=== PATIENT | male | born 1950 | race Caucasian/White ===

== ENCOUNTER 2016-11-10 18:23 | Emergency (ER) | payer OTHER, MEDICARE ==
[~2016-11-10] VITALS: Ht 175.3 cm; Wt 91.6 kg
[2016-11-10] MEDS ORDERED: INSULANT SC (18:42)
[2016-11-10] MEDS ORDERED: INSUH10VL SC (18:42)
[2016-11-10] MEDS ORDERED: albuterol inhaler (18:42)
[2016-11-10] MEDS ORDERED: LEVO100T5 PO (18:42)
[2016-11-10] MEDS ORDERED: ASPI32ECTA PO (18:42)
[2016-11-10] MEDS ORDERED: ATOR1TAB18 PO (18:42)
[2016-11-10] MEDS ORDERED: VALS1TAB46 PO (18:42)
[2016-11-10] MEDS ORDERED: BENA25CA4 PO (18:42)
[2016-11-10] MEDS ORDERED: SYMB16INH INH (18:42)
[2016-11-10] MEDS ORDERED: HYDR25TAB PO (18:42)
[2016-11-10] MEDS ORDERED: BICA50TA2 PO (18:42)
[2016-11-10] MEDS ORDERED: CODEINE (18:42)
[2016-11-10] MEDS ORDERED: TYLENOL (18:42)
[2016-11-10] MEDS ORDERED: IPRATROPIUM 0.5MG/ALBUTEROL 2.5MG INH SOL UD 3ML (DUONEB)(J7620) NEB ONE (19:00)
[2016-11-10] MEDS ORDERED: methylPREDNISolone INJ 125 MG/2 ML VIAL (J2930) IV ONE (19:00)
[2016-11-10] MEDS ORDERED: NS 1,000 ML IV ONE (19:00)
[2016-11-10] MEDS ORDERED: ALBUTEROL SULFATE 2.5 MG/0.5 ML INH NEB SOLN INH ONE (19:00)
[2016-11-10] MEDS ORDERED: ACETAMINOPHEN 325 MG TAB PO ONE (19:00)
[2016-11-10 19:40] LABS: ABG BASE EXCESS 1.5 (-2.0-2.0); ABG HCO3 25.3 MEQ/L (22.0-26.0); ABG PARTIAL PRESSURE CO2 37.4 mmHg (35.0-45.0); ABG PARTIAL PRESSURE O2 72.4 mmHg (75.0-100.0); ABG STANDARD HCO3 25.7 MEQ/L (22.0-26.0); ABG TOTAL CO2 26.4 MEQ/L (23.0-31.0); ABG pH (ARTERIAL) 7.448 UNITS (7.350-7.450)
[2016-11-10 19:44] LABS: BASO # 0.1 K/mm3 (0.0-0.2); BASO % 0.5 % (0.0-1.0); EOS # 0.2 K/mm3 (0.0-0.50); EOS % 0.9 % (0.0-3.0); LARGE UNSTAINED CELL # 0.3 K/mm3 (0.0-0.4); LARGE UNSTAINED CELL % 1.6 % (0.0-4.0); LYMPH # 1.2 K/mm3 (1.5-4.5); LYMPH % 6.7 % (24.0-44.0); MEAN CORPUSCULAR HEMOGLOBIN 31.8 pg (27.0-33.0); MEAN CORPUSCULAR HGB CONC 34.3 g/dl (32.0-36.5); MEAN CORPUSCULAR VOLUME 92.8 fl (80.0-96.0); MONO # 0.9 K/mm3 (0.0-0.8); MONO % 5.3 % (0.0-5.0); NEUTROPHILS # 14.7 K/mm3 (1.8-7.7); PLATELET COUNT, AUTOMATED 203 k/mm3 (150-450); RED CELL DISTRIBUTION WIDTH 12.6 % (11.5-14.5); WHITE BLOOD COUNT 17.2 K/mm3 (4.0-10.0)
[2016-11-10 20:07] LABS: ANION GAP 8 MEQ/L (8-16); BLOOD UREA NITROGEN 17 MG/DL (7-18); CARBON DIOXIDE LEVEL 27 MEQ/L (21-32); CHLORIDE LEVEL 102 MEQ/L (98-107); CREATININE FOR GFR 1.02 MG/DL (0.70-1.30); GLOMERULAR FILTRATION RATE > 60.0 (>49); GLUCOSE, FASTING 123 MG/DL (80-110); SODIUM LEVEL 137 MEQ/L (136-145)
[2016-11-10 20:12] LABS: ALBUMIN 3.7 GM/DL (3.2-5.2); ALBUMIN/GLOBULIN RATIO 1.19 (1.00-1.93); BILIRUBIN,DIRECT 0.2 MG/DL (0.0-0.2); BILIRUBIN,TOTAL 0.7 MG/DL (0.2-1.0); THYROXINE (T4) 9.4 UG/DL (4.5-12.0); TOTAL PROTEIN 6.8 GM/DL (6.4-8.2)
[2016-11-10] MEDS ORDERED: LevoFLOXacin IV 750 MG in APPROPRIATE DILUENT 1 EA IV ONE (20:15)
[2016-11-10] MEDS ORDERED: ISOVUE-370 76% 100ML VIAL (Q9967) As Ordered ONE (21:38)
--- NOTE | 2016-11-10 23:00 | REPUSA ---
CLINICAL HISTORY: Dyspnea, exclude PE. TECHNIQUE: Multiple incremental axial, coronal and oblique images are obtained from the thoracic inle t to the upper abdomen. Intravenous contrast material was administered as per pulmonary embolism prot ocol. COMMENTS: There is excellent opacification of pulmonary arterial system without evidence for pulmonary embolism . Aorta is of normal caliber without evidence for dissection or aneurysm. 4 x 6 cm emphysematous bulla is present in the medial aspect of right lower lobe. Left lower lobe co nfluent opacity is seen compatible with pneumonia. Right middle lobe scarring is seen There is no evidence of pleural or parenchymal mass. There are no pleural effusions. There is no evid ence of hilar or mediastinal lymphadenopathy. The heart and great vessels are within normal limits. Images of the upper abdomen demonstrate no evidence of adrenal mass. The bony structures are free of lytic or blastic lesions. Multilevel degenerative changes are seen in volving the visualized thoracolumbar spine. Scattered calcifications are seen involving the aorta and major branches compatible with atherosclero sis. IMPRESSION: No evidence for pulmonary embolism. 4 x 6 cm emphysematous bulla is present in the medial aspect of right lower lobe. Left lower lobe confluent opacity is seen compatible with pneumonia. Thank you for your kind referral of this patient.
[2016-11-10] MEDS ORDERED: LEVA750T PO (23:27)
[2016-11-10] MEDS ORDERED: PRED50TA PO (23:27)
[2016-11-11 00:05] VITALS: BP 154/71
--- NOTE | 2016-11-11 08:54 | REP ---
REASON: Cough and dyspnea. COMPARISON: 11/08/2015 FINDINGS: The technique utilized in obtaining the radiograph has magnified the cardiac silhouette and accentuated the interstitial markings. The superior mediastinal structures are midline. The cardiac silhouette is unremarkable in size, shape, and position. The diaphragmatic surfaces of the lungs are regular, and the costophrenic angles are clear. The pulmonary castillo are clear. The imaged osseous structures are intact. IMPRESSION: There is no acute cardiopulmonary disease. Signed by Brendon Croft DO 11/11/2016 09:26 A
--- NOTE | 2016-11-11 09:23 | ECGEPIP ---
Stationary ECG Study [facility] - ED Test Date: 2016-11-10 Pat Name: GELACIO WANG Department: Room: - Gender: M Patient Care Representative: SalinasB: 1950 Requested By: Mayur Simpson Order Number: [id number] Reading MD: Mayur Simpson Measurements Intervals [place] Rate: 78 P: 62 NV: 132 QRS: 44 QRSD: 114 T: 58 QT: 375 QTc: 428 Interpretive Statements SINUS RHYTHM RIGHT BUNDLE BRANCH BLOCK LOW QRS VOLTAGE LIMB LEADS ST T WAVE CHANGES ANTEROSEPTAL LEADS - NONSPECIFIC VS ISCHEMIA CW 11/08/15 - RATE INCREASED NEW ANTEROSEPTAL ST T WAVE CHANGES Electronically Signed On 11-11-2016 9:23:30 EDT by Mayur Simpson
--- NOTE | 2016-11-11 09:23 | ECGEPIP ---
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
== END 2016-11-11 00:10 | disposition home or self-care (01) ==
LOC: M ED 19:11
DX: J44.1 Chronic obstructive pulmonary disease with (acute) exacerbation (principal); J18.9 Pneumonia, unspecified organism; I45.10 Unspecified right bundle-branch block; R94.31 Abnormal electrocardiogram [ECG] [EKG]; E10.9 Type 1 diabetes mellitus without complications; I10 Essential (primary) hypertension; E78.9 Disorder of lipoprotein metabolism, unspecified; E07.9 Disorder of thyroid, unspecified; C61 Malignant neoplasm of prostate; F17.200 Nicotine dependence, unspecified, uncomplicated; Z79.899 Other long term (current) drug therapy; Z79.82 Long term (current) use of aspirin
CPT/HCPCS: 36600; 71010; 71275; 80048; 80076; 82550; 82553; 82803; 83605; 83880; 84436; 84443; 84484; 85025; 87040; 87070; 87205; 87804; 93005; 93041; 96361; 96365; 96375; 96376; 99285; J1956; J2930; Q9967

== ENCOUNTER → 2017-06-06 | Outpatient (REF) ==
[~2017-06-06] MED LIST: ASPI325T24 PO; ATOR80TA59 PO; BENA25CA4 PO; BICA50TA2 PO; CODEINE; HYDR25TAB PO; INSUH10VL SC; INSULANT SC; LEVA750T7 PO; LEVO100T5 PO; PRED50TA PO; SYMB16INH INH; TYLENOL; VALS1TAB46 PO; albuterol inhaler
[2017-06-07 14:16] LABS: Lyme Disease IgG/IgM Antibodie <0.91 ISR (0.00-0.90); Lyme Disease IgM Ab Quantitati <0.80 index (0.00-0.79)
== END ==
LOC: M LAB 12:51
PROVIDERS: ATTEND Nurse Practitioner Family
DX: G51.0 Bell's palsy (principal)

== ENCOUNTER 2017-10-08 10:48 | Emergency (ER) | payer OTHER, MEDICARE ==
[2017-10-08 11:56] LABS: VENOUS BASE EXCESS 1.4 (-2.0-2.0); VENOUS HCO3 28.6 MEQ/L (23.0-27.0); VENOUS O2 SATURATION 61.6 % (60.0-80.0); VENOUS PARTIAL PRESSURE CO2 54.4 mmHg (38.0-50.0); VENOUS PARTIAL PRESSURE O2 33.4 mmHg (30.0-50.0); VENOUS PH 7.338 UNITS (7.330-7.430); VENOUS STANDARD HCO3 24.6 MEQ/L; VENOUS TOTAL CO2 30.2 MEQ/L (24.0-28.0)
[2017-10-08 12:08] LABS: BASO # 0.1 10^3/uL (0.0-0.2); BASO % 0.8 % (0.0-1.0); EOS # 0.1 10^3/uL (0.0-0.50); EOS % 0.9 % (0.0-3.0); HEMATOCRIT 47.3 % (42.0-52.0); HEMOGLOBIN 15.7 g/dl (14.0-18.0); IMMATURE GRANULOCYTE % 0.5 % (0-3.0); LYMPH # 1.4 10^3/uL (1.5-4.5); LYMPH % 11.6 % (24.0-44.0); MEAN CORPUSCULAR HEMOGLOBIN 31.5 pg (27.0-33.0); MEAN CORPUSCULAR HGB CONC 33.2 g/dl (32.0-36.5); MEAN CORPUSCULAR VOLUME 94.8 fl (80.0-96.0); MONO # 0.7 10^3/uL (0.0-0.8); MONO % 5.8 % (0.0-5.0); NEUTROPHILS # 9.5 10^3/uL (1.8-7.7); NEUTROPHILS % 80.4 % (36.0-66.0); PLATELET COUNT, AUTOMATED 201 10^3/uL (150-450); RED BLOOD COUNT 4.99 10^6/uL (4.30-6.10); RED CELL DISTRIBUTION WIDTH 12.5 % (11.5-14.5); WHITE BLOOD COUNT 11.8 10^3/uL (4.0-10.0)
[2017-10-08 12:16] LABS: INR 0.92; PROTHROMBIN TIME 12.4 SECONDS (12.4-14.5)
[2017-10-08] MEDS: MECLIZINE 25 MG TABLET PO (12:30)
[2017-10-08 12:34] LABS: ANION GAP 8 MEQ/L (8-16); BLOOD UREA NITROGEN 16 MG/DL (7-18); CALCIUM LEVEL 9.7 MG/DL (8.8-10.2); CARBON DIOXIDE LEVEL 29 MEQ/L (21-32); CHLORIDE LEVEL 101 MEQ/L (98-107); CPK CREATINE PHOSPHOKINASE 100 U/L (39-308); CREATININE FOR GFR 0.92 MG/DL (0.70-1.30); FREE T4 0.96 NG/DL (0.76-1.46); GLOMERULAR FILTRATION RATE > 60.0 (>49); GLUCOSE, FASTING 201 MG/DL (70-100); MAGNESIUM LEVEL 2.4 MG/DL (1.8-2.4); SODIUM LEVEL 138 MEQ/L (136-145); TROPONIN I < 0.02 NG/ML (< 0.10)
[2017-10-08 12:40] LABS: CK-MB VALUE MASS 2.9 NG/ML (0.0-3.6)
[2017-10-10 11:57] LABS: BEDSIDE GLUCOSE 201 MG/DL (80-115)
== END 2017-10-08 16:42 | disposition left against medical advice (07) ==
LOC: M ED 10:48
DX: R42 Dizziness and giddiness (principal); I67.82 Cerebral ischemia; Z86.73 Personal history of transient ischemic attack (TIA), and cerebral infarction without residual deficits; I45.10 Unspecified right bundle-branch block; E11.9 Type 2 diabetes mellitus without complications; I10 Essential (primary) hypertension; E78.5 Hyperlipidemia, unspecified; M54.9 Dorsalgia, unspecified; E05.90 Thyrotoxicosis, unspecified without thyrotoxic crisis or storm; Z85.46 Personal history of malignant neoplasm of prostate; F17.200 Nicotine dependence, unspecified, uncomplicated
CPT/HCPCS: 70551

== ENCOUNTER → 2018-02-01 | Outpatient (CLI) | payer OTHER, MEDICARE ==
[2018-02-01 13:03] LABS: ALBUMIN/GLOBULIN RATIO 1.43 (1.00-1.93); ALKALINE PHOSPHATASE 75 U/L (45-117); ALT/SGPT 24 U/L (12-78); AST/SGOT 19 U/L (7-37); BILIRUBIN,DIRECT 0.1 MG/DL (0.0-0.2); BILIRUBIN,TOTAL 0.5 MG/DL (0.2-1.0); TOTAL PROTEIN 6.8 GM/DL (6.4-8.2)
== END ==
LOC: M WUC 10:54
DX: B35.4 Tinea corporis (principal)
CPT/HCPCS: 80076

== ENCOUNTER 2018-06-25 07:32 | Emergency (ER) | payer OTHER, MEDICARE ==
[2018-06-25] MEDS: methylPREDNISolone INJ 125 MG/2 ML VIAL (J2930) IV (08:01)
[2018-06-25] MEDS: ALBUTEROL SULFATE 2.5 MG/0.5 ML INH NEB SOLN NEB ×2 (08:04→08:21)
[2018-06-25 08:28] LABS: BASO # 0.1 10^3/uL (0.0-0.2); BASO % 0.5 % (0.0-1.0); EOS # 0.2 10^3/uL (0.0-0.50); EOS % 0.9 % (0.0-3.0); HEMATOCRIT 40.5 % (42.0-52.0); HEMOGLOBIN 13.7 g/dl (13.5-17.5); IMMATURE GRANULOCYTE % 0.8 % (0-3.0); LYMPH # 1.4 10^3/uL (1.5-4.5); LYMPH % 8.4 % (24.0-44.0); MEAN CORPUSCULAR HEMOGLOBIN 32.7 pg (27.0-33.0); MEAN CORPUSCULAR HGB CONC 33.8 g/dl (32.0-36.5); MEAN CORPUSCULAR VOLUME 96.7 fl (80.0-96.0); MONO # 1.5 10^3/uL (0.0-0.8); MONO % 8.7 % (0.0-5.0); NEUTROPHILS # 13.4 10^3/uL (1.8-7.7); NEUTROPHILS % 80.7 % (36.0-66.0); PLATELET COUNT, AUTOMATED 174 10^3/uL (150-450); RED BLOOD COUNT 4.19 10^6/uL (4.30-6.10); RED CELL DISTRIBUTION WIDTH 13.2 % (11.5-14.5); WHITE BLOOD COUNT 16.6 10^3/uL (4.0-10.0)
[2018-06-25 08:45] LABS: LACTIC ACID SEPSIS PROTOCOL 1.7 MMOL/L (0.4-2.0)
[2018-06-25 08:45] LABS: ANION GAP 9 MEQ/L (8-16); BLOOD UREA NITROGEN 12 MG/DL (7-18); CARBON DIOXIDE LEVEL 28 MEQ/L (21-32); CHLORIDE LEVEL 100 MEQ/L (98-107); CPK CREATINE PHOSPHOKINASE 122 U/L (39-308); CREATININE FOR GFR 0.96 MG/DL (0.70-1.30); GLOMERULAR FILTRATION RATE > 60.0 (>42); GLUCOSE, FASTING 183 MG/DL (70-100); MB/CK RELATIVE INDEX 3.44 (< OR =4); NT-PRO BNP 122 PG/ML (<125); POTASSIUM SERUM 3.7 MEQ/L (3.5-5.1); SODIUM LEVEL 137 MEQ/L (136-145); TROPONIN I < 0.02 NG/ML (< 0.10)
[2018-06-25 08:51] LABS: ABG HCO3 27.1 MEQ/L (22.0-26.0); ABG O2 SATURATION 96.2 % (95.0-99.0); ABG PARTIAL PRESSURE O2 81.1 mmHg (75.0-100.0); ABG STANDARD HCO3 26.2 MEQ/L (22.0-26.0); ABG TOTAL CO2 28.5 MEQ/L (23.0-31.0); ABG pH (ARTERIAL) 7.408 UNITS (7.350-7.450)
[2018-06-25 09:13] LABS: INFLUENZA A AMPLIFICATION NEGATIVE (NEGATIVE); INFLUENZA B AMPLIFICATION NEGATIVE (NEGATIVE)
[2018-06-25] MEDS: LevoFLOXacin IV 500 MG in APPROPRIATE DILUENT 1 EA IV (11:50)
== END 2018-06-25 13:03 | disposition home or self-care (01) ==
LOC: M ED 07:32
DX: J18.9 Pneumonia, unspecified organism (principal); J44.9 Chronic obstructive pulmonary disease, unspecified; R06.03 Acute respiratory distress; R00.0 Tachycardia, unspecified; E11.9 Type 2 diabetes mellitus without complications; I10 Essential (primary) hypertension; Z87.891 Personal history of nicotine dependence; Z79.899 Other long term (current) drug therapy; Z79.51 Long term (current) use of inhaled steroids; Z79.4 Long term (current) use of insulin; Z79.82 Long term (current) use of aspirin
CPT/HCPCS: J2930

== ENCOUNTER → 2018-08-06 | Outpatient (REF) | payer OTHER, MEDICARE ==
[~2018-08-06] MED LIST changes: +ALBU17IN2 INH; -ASPI325T24 PO; +ASPI325T25 PO; -BICA50TA2 PO; +BICA50TA9 PO; +HYDR-3713 PO; +HYDR12.55 PO; +LEVA1TAB2 PO; +MECL-68 PO; +PRED10TA2 PO; +VALS1TAB49 PO; +VITA200038 PO; +[UNRECOGNIZED DRUG - OTHER]
--- NOTE | 2018-08-07 01:52 | REP ---
Clinical: Nonhealing wound. Technique: AP, lateral, bilateral oblique views of the left elbow. Comparison: None. Findings: Mild age-related arthritic changes are appreciated along with peripheral vascular disease. No obvious acute fracture or dislocation. No obvious healing osseous injury, subcutaneous emphysema or radiodense foreign body. Anterior and posterior fat pads are grossly within normal limits. Impression: Age-related arthritic changes and evidence for peripheral vascular disease. No obvious acute process appreciated. Electronically Signed by Vern Huff MD 08/07/2018 01:43 A
--- NOTE | 2018-08-07 02:14 | REP ---
Clinical: Nonhealing wound. Technique: AP, lateral, bilateral oblique views of the right foot. Findings: Advanced arthritic changes at the first metatarsophalangeal joint including joint space obliteration, marginal spurring/heterotopic ossification and subchondral heterogeneity with subtle cystic changes. Mild chronic hallux valgus deformity is also noted. Remainder examination demonstrates mild arthritic changes. No significant swelling or subcutaneous emphysema. No obvious acute fracture or dislocation. Impression: Degenerative changes primarily involving the first MTP joint. Electronically Signed by Vern Huff MD 08/07/2018 02:06 A
--- NOTE | 2018-08-07 02:40 | REP ---
Clinical: Nonhealing wound. Technique: AP, lateral, bilateral oblique views of the right ankle. Findings: Swelling and small ulceration overlies the lateral malleolus. The osseous structures appear intact and normal. No periosteal reaction or erosive changes are appreciated to suggest osteomyelitis. Ankle mortise intact. Impression: Swelling and small ulcer along the lateral ankle. Osseous structures and joint spaces appeared normal. Electronically Signed by Vern Huff MD 08/07/2018 02:31 A
== END ==
LOC: M RAD 13:37
PROVIDERS: ATTEND Family Medicine
DX: S91.301A Unspecified open wound, right foot, initial encounter (principal); X58.XXXA Exposure to other specified factors, initial encounter; Y92.89 Other specified places as the place of occurrence of the external cause; M19.071 Primary osteoarthritis, right ankle and foot

== ENCOUNTER 2018-08-27 12:26 | Emergency (ER) | payer OTHER, MEDICARE ==
[~2018-08-27] VITALS: Ht 175.3 cm; Wt 85.0 kg
[2018-08-27] MEDS ORDERED: TIOT18INH INH (12:37)
[2018-08-27] MEDS ORDERED: methylPREDNISolone INJ 125 MG/2 ML VIAL (J2930) IV ONE (13:15)
[2018-08-27] MEDS ORDERED: NS 1,000 ML IV ONE (13:15)
[2018-08-27 13:20] LABS: HEMATOCRIT 40.5 % (42.0-52.0); MEAN CORPUSCULAR HEMOGLOBIN 31.2 pg (27.0-33.0); MEAN CORPUSCULAR HGB CONC 34.6 g/dl (32.0-36.5); MEAN CORPUSCULAR VOLUME 90.2 fl (80.0-96.0); PLATELET COUNT, AUTOMATED 154 10^3/uL (150-450); RED BLOOD COUNT 4.49 10^6/uL (4.30-6.10); WHITE BLOOD COUNT 5.9 10^3/uL (4.0-10.0)
[2018-08-27] MEDS: IPRATROPIUM 0.5MG/ALBUTEROL 2.5MG INH SOL UD 3ML (DUONEB)(J7620) NEB PRN ×3 (13:21→14:02)
[2018-08-27 13:41] LABS: ALBUMIN 3.5 GM/DL (3.2-5.2); ALT/SGPT 22 U/L (12-78); BILIRUBIN,DIRECT 0.3 MG/DL (0.0-0.2); BILIRUBIN,TOTAL 0.9 MG/DL (0.2-1.0); BLOOD UREA NITROGEN 8 MG/DL (7-18); CALCIUM LEVEL 8.7 MG/DL (8.8-10.2); CARBON DIOXIDE LEVEL 32 MEQ/L (21-32); CHLORIDE LEVEL 95 MEQ/L (98-107); CPK CREATINE PHOSPHOKINASE 120 U/L (39-308); CREATININE FOR GFR 0.93 MG/DL (0.70-1.30); GLOMERULAR FILTRATION RATE > 60.0 (>42); GLUCOSE, FASTING 199 MG/DL (70-100); LIPASE 89 U/L (73-393); MB/CK RELATIVE INDEX 2.75 (< OR =4); NT-PRO BNP 147 PG/ML (<125); POTASSIUM SERUM 3.4 MEQ/L (3.5-5.1); SODIUM LEVEL 136 MEQ/L (136-145); THYROID STIMULATING HORMONE 0.916 uIU/ML (0.358-3.740); TOTAL PROTEIN 6.6 GM/DL (6.4-8.2); TROPONIN I < 0.02 NG/ML (< 0.10)
--- NOTE | 2018-08-27 14:10 | REP ---
Clinical: Cough and dyspnea . Comparison: 10/08/2017 . Technique: PA and lateral. Findings: The mediastinum and cardiac silhouette are normal. The lung castillo are clear and without acute consolidation, effusion, or pneumothorax. The skeletal structures are intact and normal. Impression: 1. No acute cardiopulmonary process. Electronically Signed by Vern Huff MD 08/27/2018 02:01 P
[2018-08-27 14:17] LABS: ATYPICAL LYMPH 3 % (0-5); BASOPHILS 1 % (0-4); EOSINOPHILS 1 % (0-5); LYMPHOCYTES 32 % (16-52); MONOCYTES 9 % (0-8); NEUTROPHILS 53 % (35-75)
[2018-08-27 14:18] LABS: PLATELET ESTIMATE NORMAL (NORMAL)
[2018-08-27] MEDS ORDERED: PRED10TA2 PO (15:34)
[2018-08-27 15:53] VITALS: BP 146/56
--- NOTE | 2018-08-28 10:16 | ECGEPIP ---
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
== END 2018-08-27 15:58 | disposition home or self-care (01) ==
LOC: M ED 12:26
DX: J44.1 Chronic obstructive pulmonary disease with (acute) exacerbation (principal); E11.9 Type 2 diabetes mellitus without complications; I10 Essential (primary) hypertension; E78.5 Hyperlipidemia, unspecified; M54.9 Dorsalgia, unspecified; F17.210 Nicotine dependence, cigarettes, uncomplicated; Z79.899 Other long term (current) drug therapy; Z79.51 Long term (current) use of inhaled steroids; Z79.4 Long term (current) use of insulin; Z79.82 Long term (current) use of aspirin
CPT/HCPCS: 71046; 80048; 80076; 82550; 82553; 83605; 83690; 83880; 84443; 84484; 85025; 87040; 87486; 87581; 87633; 87798; 93005; 93041; 94640; 94760; 96374; 99285; J2930

== ENCOUNTER 2018-11-05 23:22 | Emergency (ER) | payer MEDICARE, OTHER ==
[~2018-11-05] VITALS: Ht 175.3 cm; Wt 88.6 kg
[~2018-11-05 23:22] MED LIST changes: +ASPI-255 PO; -ASPI325T25 PO; +TIOT18INH INH; -VALS1TAB46 PO; +VALS1TAB66 PO
--- NOTE | 2018-11-06 01:19 | REPVR ---
EXAM: CT Head Without Contrast EXAM DATE/TIME: 11/06/2018 12:21 AM CLINICAL HISTORY: 68 years old, male; Injury or trauma; Fall; Additional info: Tr TECHNIQUE: Imaging protocol: Axial computed tomography images of the head/brain without contrast. Radiation optimization: All CT scans at this facility use at least one of these dose optimization techniques: automated exposure control; mA and/or kV adjustment per patient size (includes targeted exams where dose is matched to clinical indication); or iterative reconstruction. COMPARISON: CT Head without contrast 10/08/2017 11:27 AM FINDINGS: Brain: Normal. No hemorrhage. No significant white matter disease. No edema. Ventricles: Normal. No ventriculomegaly. Bones/joints: Unremarkable. No acute fracture. Sinuses: Visualized sinuses are unremarkable. No acute sinusitis. Mastoid air cells: Visualized mastoid air cells are unremarkable. No mastoid effusion. Soft tissues: Unremarkable. IMPRESSION: No acute intracranial abnormality. Electronically signed by: Elle Mueller On 11/06/2018 01:19:37 AM
[2018-11-06 01:50] VITALS: BP 131/68
--- NOTE | 2018-11-06 15:35 | ECGEPIP ---
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
== END 2018-11-06 02:04 | disposition home or self-care (01) ==
LOC: EDBD 23:22 → M ED 23:22
DX: S00.83XA Contusion of other part of head, initial encounter (principal); W18.39XA Other fall on same level, initial encounter; Y92.018 Other place in single-family (private) house as the place of occurrence of the external cause; E11.9 Type 2 diabetes mellitus without complications; I10 Essential (primary) hypertension; J44.9 Chronic obstructive pulmonary disease, unspecified; Z79.899 Other long term (current) drug therapy; Z79.82 Long term (current) use of aspirin; Z79.4 Long term (current) use of insulin

== ENCOUNTER 2019-12-14 10:49 | Inpatient (IN) | payer OTHER, MEDICARE ==
[~2019-12-14] VITALS: Ht 175.3 cm; Wt 70.2 kg
[2019-12-14] MEDS: NICOTINE 14 MG/24 HR TRANSDERMAL TD SCH ×2 (09:00→18:02)
[~2019-12-14 10:49] MED LIST changes: -ALBU17IN2 INH; -MECL-68 PO; +MECL1TAB31 PO; +PROV108A INH; -VALS1TAB49 PO; +VALS40TA9 PO
[2019-12-14] MEDS ORDERED: GABA-845 PO (11:15)
[2019-12-14] MEDS: IPRATROPIUM 0.5MG/ALBUTEROL 2.5MG INH SOL UD 3ML (DUONEB)(J7620) NEB SCH ×4 (11:49→20:00)
[2019-12-14 11:58] LABS: BASO # 0.2 10^3/uL (0.0-0.2); BASO % 1.3 % (0.0-1.0); EOS # 0.4 10^3/uL (0.0-0.5); HEMATOCRIT 34.8 % (42.0-52.0); HEMOGLOBIN 10.5 g/dl (13.5-17.5); LYMPH # 1.2 10^3/uL (1.5-5.0); LYMPH % 9.6 % (24.0-44.0); MEAN CORPUSCULAR HGB CONC 30.2 g/dl (32.0-36.5); MEAN CORPUSCULAR VOLUME 96.1 fl (80.0-96.0); NEUTROPHILS # 9.3 10^3/uL (1.5-8.5); NEUTROPHILS % 77.7 % (36.0-66.0); PLATELET COUNT, AUTOMATED 303 10^3/uL (150-450); RED BLOOD COUNT 3.62 10^6/uL (4.30-6.10); WHITE BLOOD COUNT 11.9 10^3/uL (4.0-10.0)
[2019-12-14] MEDS ORDERED: [UNRECOGNIZED DRUG - CODE] IV (12:13)
[2019-12-14 12:15] LABS: ERYTHROCYTE SEDIMENTATION RATE 65 mm/hr (0-20)
[2019-12-14 12:31] LABS: BLOOD UREA NITROGEN 18 MG/DL (7-18); CALCIUM LEVEL 9.1 MG/DL (8.8-10.2); CARBON DIOXIDE LEVEL 28 MEQ/L (21-32); CHLORIDE LEVEL 101 MEQ/L (98-107); CREATININE FOR GFR 0.74 MG/DL (0.70-1.30); GLOMERULAR FILTRATION RATE > 60.0 (>42); GLUCOSE, FASTING 218 MG/DL (70-100); POTASSIUM SERUM 4.3 MEQ/L (3.5-5.1); SODIUM LEVEL 137 MEQ/L (136-145)
[2019-12-14 12:53] LABS: CK-MB VALUE MASS 3.6 NG/ML (<3.6); CPK CREATINE PHOSPHOKINASE 60 U/L (39-308); NT-PRO BNP 14472 PG/ML (<125); TROPONIN I 0.14 NG/ML (< 0.10)
[2019-12-14] MEDS ORDERED: FUROSEMIDE 40MG/4ML VIAL (J1940) IV ONE (13:30)
--- NOTE | 2019-12-14 14:40 | REP ---
REASON: Dyspnea. COMPARISON: Multiple, the latest a frontal view obtained as part of an abdominal series, 08/05/2019. The technique utilized in obtaining the radiograph has magnified the cardiac silhouette and accentuated the interstitial markings. Since the last examination, a PICC line catheter has been placed, the tip of which is in the superior vena cava. The interstitial markings are diffusely increased and accentuated by technique. There is evidence of Fiorella B lines. There is evidence of pulmonary vascular redistribution, remembering this is a portable exam. The heart is borderline but accentuated by technique. The pleural angles are sharp. There are no patchy opacities. The imaged osseous structures are stable and intact. IMPRESSION: 1. There is evidence of interstitial edema, as described above. 2. PICC line catheter, as described above. 3. Exam limitations and technical parameters, as described above. Electronically Signed by Brendon Croft DO 12/14/2019 03:51 P
[2019-12-14 15:02] LABS: CK-MB VALUE MASS 3.2 NG/ML (<3.6); MB/CK RELATIVE INDEX 4.85 (< OR =4); TROPONIN I 0.21 NG/ML (< 0.10)
[2019-12-14] MEDS ORDERED: GABA-843 PO (15:17)
[2019-12-14] MEDS ORDERED: FLUO5OI TOP (15:17)
[2019-12-14] MEDS ORDERED: BACL10TA2 PO (15:17)
[2019-12-14] MEDS ORDERED: NAPR220C14 PO ×2 (15:17)
[2019-12-14] MEDS ORDERED: SPIR1CAP INH (15:17)
[2019-12-14] MEDS ORDERED: VENTAER INH (15:17)
[2019-12-14] MEDS ORDERED: ATOR80TA59 PO (15:17)
[2019-12-14] MEDS ORDERED: AMIT10TA PO (15:17)
[2019-12-14] MEDS ORDERED: KETO2CR TOP (15:17)
[2019-12-14] MEDS ORDERED: ALBU83IN INH (15:17)
[2019-12-14] MEDS ORDERED: FLUO1CRE4 TOP (15:17)
[2019-12-14] MEDS ORDERED: AMLO10TA5 PO (15:17)
[2019-12-14] MEDS ORDERED: VALS1TAB67 PO (15:17)
[2019-12-14] MEDS ORDERED: ATEN50TA2 PO (15:17)
[2019-12-14] MEDS ORDERED: MAALOX 30 ML SUSP *UDC PO PRN (15:45)
[2019-12-14] MEDS ORDERED: ACETAMINOPHEN TAB 650MG DOSE (2X325MG) PO PRN (15:45)
[2019-12-14] MEDS ORDERED: MOM 30ML SUSPENSION UDC PO PRN (15:45)
[2019-12-14] MEDS ORDERED: FUROSEMIDE 40MG/4ML VIAL (J1940) IV SCH (15:45)
[2019-12-14] MEDS ORDERED: ALBUTEROL SULFATE 2.5 MG/0.5 ML INH NEB SOLN NEB PRN (15:45)
[2019-12-14] MEDS ORDERED: DEXTROSE 50% 50 ML SYRINGE IV PRN (16:00)
[2019-12-14] MEDS ORDERED: BACLOFEN 10 MG TAB PO PRN (16:00)
[2019-12-14] MEDS ORDERED: NORCO, ANEXSIA 5/325MG TABLET (HYDROcodone/ACETAMINOPHEN) PO PRN ×2 (16:00→18:30)
[2019-12-14] MEDS ORDERED: GLUCAGON INJ 1MG VIAL SC PRN (16:00)
[2019-12-14] MEDS ORDERED: FLUOCINONIDE 0.05% OINT 15 GM TOP PRN (16:00)
[2019-12-14] MEDS ORDERED: KETOCONAZOLE 2% CREAM TOP PRN (16:00)
[2019-12-14] MEDS ORDERED: GLUCOSE 4GM CHEW TABLET PO PRN (16:00)
[2019-12-14] MEDS: GABAPENTIN 300 MG CAP PO SCH ×2 (16:30→20:22)
--- NOTE | 2019-12-14 16:31 | HPEPDOC ---
General Date of Admission December 14, 2019 at 15:44 Date of Service: December 14, 2019 Chief Complaint The patient is a 69-year-old male admitted with a reason for visit of CHF. Source: Patient Exam Limitations: No limitations Timing/Duration: Other Severity: Moderate (5 days) Associated Symptoms: Shortness of breath, Other (, orthopnea) History of Present Illness This is a 69 years old white male with past medical history of hypertension, diabetes mellitus, COPD, active smoker, cervical spondylitis, L3-L4 discitis on IV antibiotics, was recently discharged from [facility] in [place] for discitis and had a PICC line placed in and is receiving oxacillin IV. Patient does not remember the dosage but he gets through home care services. According to patient, he developed increasing shortness of breath since last Saturday, which is progressively getting worse, more pronounced on lying down, no cough, no phlegm, no chest pain. Patient is being admitted with exacerbation of COPD and possibly acute systolic CHF. Home Medications Scheduled Amitriptyline HCl (Amitriptyline HCl) 10 Mg Tablet, 10 MG PO QHS, (Reported) NEW RX FROM LAST ADMISSION FROM [place] - PATIENT DID NOT START Amlodipine Besylate (Amlodipine Besylate) 10 Mg Tablet, 5 MG PO DAILY, (Reported) NEW RX FROM LAST ADMISSION AT [place] - PATIENT DID NOT START Aspirin (Aspirin EC) 325 Mg Tabec, 325 MG PO QPM, (Reported) Atenolol (Atenolol) 50 Mg Tablet, 50 MG PO DAILY, (Reported) NEW RX FROM LAST ADMISSION AT [place] - PATIENT HAS NOT STARTED Atorvastatin Calcium (Atorvastatin Calcium) 80 Mg Tablet, 40 MG PO DAILY, (Reported) Budesonide/Formoterol (Symbicort 160-4.5 Mcg Inhaler) 60 Puff/Inhaler Aers, 2 PUFF INH BID, (Reported) Gabapentin (Gabapentin) 300 Mg Capsule, 300 MG PO TID, (Reported) Insulin Human Lispro (Novolog) 100 U/Ml Inj, 1 DOSE SC ACHS, (Reported) PER SLIDING SCALE Naproxen Sodium (Aleve) 220 Mg Capsule, 440 MG PO QAM, (Reported) Naproxen Sodium (Aleve) 220 Mg Capsule, 220 MG PO QHS, (Reported) Oxacillin in Dextrose(Iso-Osm) (Oxacillin 1 gm/ 50 ml Inj) 1 Gm/50 Ml Froz.piggy, 12 GM IV ASDIRECTED, (Reported) IN D5W - ADMINISTER AT 12.5ML/HOUR Tiotropium [place] (Spiriva) 18 Mcg Cap.w.dev, 18 MCG INH DAILY, (Reported) TAKES AROUND 1500 Valsartan (Valsartan) 160 Mg Tablet, 160 MG PO DAILY, (Reported) Scheduled PRN Albuterol Sulf (Albuterol Sulfate) 2.5 Mg/3 Ml Vial.neb, 2.5 MG INH QID PRN for SHORTNESS OF BREATH, (Reported) Albuterol Sulfate (Ventolin Hfa) 18 Gm Hfa.aer.ad, 2 PUFFS INH QID PRN for SHORTNESS OF BREATH, (Reported) Baclofen (Baclofen) 10 Mg Tablet, 10 MG PO TID PRN for SPASMS, (Reported) Fluocinonide (Fluocinonide) 0.1% 120GM Cream..g., 1 DOSE TOP BID PRN for RASH/ITCHING, (Reported) APPLY TO HOTSPOTS Fluocinonide (Fluocinonide) 0.05% 15GM Oint...g., 1 DOSE TOP BID PRN for RASH/ITCHING, (Reported) Hydrocodone/Acetaminophen (Hydrocodone-Acetamin 5-325 mg) 1 Tab Tab, 1 TAB PO QID PRN for PAIN, (Reported) Ketoconazole (Ketoconazole) 15 Gm Cream..g., 1 DOSE TOP DAILY PRN for FUNGAL INFECTION, (Reported) APPLY TO BOTTOM OF FEET AND ELBOWS Allergies Coded Allergies: No Known Allergies (Verified , 01/16/05) Past Medical History Medical History Hypertension, diabetes mellitus, cervical spondylitis, L3-L4 discitis COPD, history of active smoking, history of noncompliance in the past Surgical History History of orthopedic surgeries on his neck, back, elbows, arms, and rest. Also right leg vascular surgery with a stent placement Family History Family history reviewed. Father had a history of CVA Social History * Smoker: current smoker Alcohol: Denies Drugs: denies A-FIB/CHADSVASC A-FIB History Current/History of A-Fib/PAF?: No Review of Systems Constitutional: Denies: Chills, Fever, Malaise, Night Sweats, Weakness, Fatigue, Weight Loss, Lethargy, Other Eyes: Denies: Pain, Vision change, Conjunctivae inflammation, Eyelid inflammation, Redness, Other ENT: Denies: Head Aches, Ear Pain, Dysphagia Skin: Denies: Rash, Lesions, Jaundice, Bruising, Itching, Dry, Breakdown, Nail Changes, Other Pulmonary: Reports: Dyspnea Cardiovascular: Reports: Orthopnea Gastrointestinal: Denies: Nausea, Vomiting, Abdominal Pain, Diarrhea, Constipation, Melena, Hematochezia, Other Symptoms Genitourinary: Denies: Dysuria, Frequency, Incontinence, Hematuria, Retention, Other Symptoms Hematologic: Denies: Bruising, Bleeding Excessively, Petecchia, Purpura, Enlarged Lymph Nodes, Other Hematologic Endocrine: Denies: Polydipsia, Polyphagia, Polyuria, Heat Intolerance, Cold Intolerance, Other Endocrine Sx Musculoskeletal: Denies: Neck Pain, Back Pain, Shoulder Pain, Arm Pain, Hand Pain, Leg Pain, Foot Pain, Joint Pain, Muscle Pain, Spasms, Other Symptoms Neurological: Denies: Weakness, Numbness, Incoordination, Change in speech, Confusion, Seizures, Other Symptoms Psych: Denies: Mood Normal, Anxiety, Depression, Memory Issues, Thoughts of Self Harm, Anger, Thoughts of Harming Other, Other Psych Physical Examination General Exam: Positive: Alert, Cooperative Eye Exam: Positive: PERRLA, Conjunctiva & lids normal ENT Exam: Positive: Atraumatic Chest Exam: Positive: Other (, decreased breath sounds with bilateral crackles audible) Heart Exam: Positive: Rate Normal, Normal S1, Normal S2 Abdomen Exam: Positive: Normal bowel sounds, Soft Extremity Exam: Positive: Edema (, 1+ bipedal edema) Skin Exam: Positive: Nl turgor and temperature Neuro Exam: Positive: Strength at 5/5 X4 ext, Sensation Intact, Cranial Nerves 3-12 NL Psych Exam: Positive: Mood NL, Oriented x 3 Vital Signs Vital Signs Date Time Temp Pulse Resp B/P (MAP) Pulse Ox O2 Delivery O2 Flow Rate FiO2 12/14/19 15:30 82 20 149/68 (95) 98 Nasal Cannula 1.0 12/14/19 15:29 97.8 Laboratory Data Labs 24H Laboratory Tests 2 12/14/19 11:38: Immature Granulocyte % (Auto) 0.4, Neutrophils (%) (Auto) 77.7H, Lymphocytes (%) (Auto) 9.6L, Monocytes (%) (Auto) 8.0H, Eosinophils (%) (Auto) 3.0, Basophils (%) (Auto) 1.3H, Neutrophils # (Auto) 9.3H, Lymphocytes # (Auto) 1.2L, Monocytes # (Auto) 1.0H, Eosinophils # (Auto) 0.4, Basophils # (Auto) 0.2, Nucleated Red Blood Cells % (auto) 0.0, Erythrocyte Sedimentation Rate 65H, Anion Gap 8, Glomerular Filtration Rate > 60.0, Calcium Level 9.1, Total Creatine Kinase 60, Creatine Kinase MB 3.6, Creatine Kinase MB Relative Index 6.00H, Troponin I 0.14H, TZ-Ibj-N-Type Natriuretic Peptide [id number] 12/14/19 11:40: C-Reactive Protein, Quantitative 1.19H 12/14/19 12:02: POC pH (Misc Panel) 7.445, POC Base Excess (Misc Panel) 2.0, POC Saturated Per cent O2 (Misc) 95, POC pO2 (Misc Panel) 74.0L, POC pCO2 (Misc Panel) 37.9, POC HCO3 (Misc Panel) 26.0, POC Total CO2 (Misc Panel) 27.0 12/14/19 14:04: Total Creatine Kinase 66, Creatine Kinase MB 3.2, Creatine Kinase MB Relative Index 4.85H, Troponin I 0.21#H 12/14/19 15:24: CBC/BMP Laboratory Tests 12/14/19 11:38 Problems (1) Acute systolic congestive heart failure Status: Acute Problem Text: 69 years old white male with past medical history of diabetes mellitus, hypertension, PVD, active smoker, recently diagnosed with L3-L4 discitis on IV oxacillin of unknown dose and frequency present date. In ER with chief complaints of increasing shortness of breath mostly at nighttime when lying down. Chest x-ray is consistent with bilateral interstitial infiltrates. Blood gas shows pH of 7.44, PO2 74, PCO2 37, bicarbonate 26, and 95%. Patient vital signs are stable with heart rate of 78, respiratory rate of 20, blood pressure 139/71 EKG shows normal sinus rhythm, no acute ST-T changes Chest x-ray is consistent with bilateral interstitial infiltrates Troponin. His first 0.1 and 4 seconds 0[place]21 [place] [address] , Electrolytes are normal with BUN 18, creatinine 0.74 CBC within normal range with hemoglobin of 10.5 and WBC count of 11.9 Patient most likely has a acute systolic congestive heart failure even though he denies any past medical history of CAD, but he has a multiple factors for coronary artery disease and congestive heart failure. Admit patient to PCU for aggressive management Lasix 40 mg IV to maintain net negative balance of 1500 mL in 24 hours Oxygen support to maintain pulse ox between 88 and 92% Strict Intake and output Daily weight Echocardiogram ordered to assess further cardiac functions Continue his home meds which include valsartan, and aspirin Will start beta blockers, Coreg 3.125 mg by mouth twice a day for CHF Further management depends on patient's response to IV diuresis and the addition of beta blockers and ARB to his regimen Diet consistent carbohydrate Activity as tolerated DVT prophylaxis with heparin 5000 units to 12 hours (2) COPD exacerbation Status: Acute Problem Text: Patient is active smoker. He does have a history of for COPD. Might have a combination of CHF with COPD . He received a loading dose of steroids in ED, I will continue Solu-Medrol 80 mg IV every 12 hours Also start DuoNeb every 6 hours and Proventil neb every hour when necessary Oxygen supplement to keep pulse ox more than 88-92% Continue all home meds (3) Discitis of lumbar region Status: Acute Problem Text: pt he was diagnosed with discitis of L3, L4 and is started on oxacillin, but he does not remember the dosage or the frequency ,even though he does have a PICC line for his infusions. I have requested chart from his recent admission to [facility] in [place]. Once the chart is reviewed, then he can be restarted back on his IV antibiotics with the dosage and duration as expected to be documented in [place] chart , Tylenol when necessary for fever Patient might require ID consult for approval (4) HTN (hypertension) Status: Chronic Problem Text: Continue all home meds including ARB as Beta candace: Coreg has been added on (5) Nicotine addiction Status: Chronic Problem Text: Smoking cessation counseling done at bedside NicoDerm 14 mg patch daily has been ordered (6) Peripheral vascular disease Status: Chronic Problem Text: Continue home meds (7) Diabetes mellitus Status: Chronic Problem Text: Fingerstick blood sugar every before meals and at bedtime with coverage . I will continue his regular insulin dose of insulin glargine 42 units daily at bedtime Consistent carb diet Plan / VTE VTE Prophylaxis Ordered?: Yes NATHAN VELEZ MD December 14, 2019 16:31
[2019-12-14] MEDS: HumaLOG INSULIN (NovoLOG) PER UNIT SC SCH (17:30)
[2019-12-14 17:35] VITALS: BP 148/79
[2019-12-14] MEDS: TIOTROPIUM INHALER/CAPSULE (SPIRIVA) INH SCH (17:57)
[2019-12-14] MEDS: methylPREDNISolone INJ 125 MG/2 ML VIAL (J2930) IV SCH (18:00)
[2019-12-14 20:00] VITALS: BP 145/69
[2019-12-14] MEDS ORDERED: OXACILLIN IV SCH (20:00)
[2019-12-14] MEDS: SYMBICORT 160/4.5MCG INHALER 6GM INH SCH (20:11)
[2019-12-14] MEDS: HEPARIN SOD (PORCINE) 5000UNITS/ML VIAL (J1644 PER 1000UNITS) SC SCH (20:21)
[2019-12-14] MEDS ORDERED: ASPIRIN ENTERIC 325 MG TAB PO SCH (21:00)
[2019-12-14] MEDS ORDERED: CARVedilol 3.125 MG TAB PO SCH (21:00)
[2019-12-14] MEDS ORDERED: HumaLOG INSULIN (NovoLOG) PER UNIT SC SCH (21:00)
[2019-12-14] MEDS ORDERED: LEVEMIR (INSULIN DETEMIR) 1 UNITS/0.01ML SC SCH (21:00)
[2019-12-15] VITALS: BP 142/71
[2019-12-15] MEDS: methylPREDNISolone INJ 125 MG/2 ML VIAL (J2930) IV SCH (00:28)
[2019-12-15] MEDS: FUROSEMIDE 40MG/4ML VIAL (J1940) IV SCH ×2 (00:29→12:51)
[2019-12-15] MEDS: IPRATROPIUM 0.5MG/ALBUTEROL 2.5MG INH SOL UD 3ML (DUONEB)(J7620) NEB SCH ×3 (02:23→13:07)
[2019-12-15 04:00] VITALS: BP 136/63
[2019-12-15 05:30] LABS: HEMATOCRIT 31.4 % (42.0-52.0); HEMOGLOBIN 9.9 g/dl (13.5-17.5); MEAN CORPUSCULAR HEMOGLOBIN 29.6 pg (27.0-33.0); MEAN CORPUSCULAR HGB CONC 31.5 g/dl (32.0-36.5); PLATELET COUNT, AUTOMATED 251 10^3/uL (150-450); RED BLOOD COUNT 3.34 10^6/uL (4.30-6.10); WHITE BLOOD COUNT 5.4 10^3/uL (4.0-10.0)
[2019-12-15 05:55] LABS: ALBUMIN 2.2 GM/DL (3.2-5.2); ALT/SGPT 10 U/L (12-78); BILIRUBIN,TOTAL 0.3 MG/DL (0.2-1.0); BLOOD UREA NITROGEN 20 MG/DL (7-18); CALCIUM LEVEL 8.7 MG/DL (8.8-10.2); CARBON DIOXIDE LEVEL 26 MEQ/L (21-32); CHLORIDE LEVEL 101 MEQ/L (98-107); CREATININE FOR GFR 0.75 MG/DL (0.70-1.30); GLOMERULAR FILTRATION RATE > 60.0 (>42); GLUCOSE, FASTING 246 MG/DL (70-100); MAGNESIUM LEVEL 1.9 MG/DL (1.8-2.4); NT-PRO BNP 13322 PG/ML (<125); POTASSIUM SERUM 4.1 MEQ/L (3.5-5.1); SODIUM LEVEL 136 MEQ/L (136-145); TOTAL PROTEIN 6.7 GM/DL (6.4-8.2); TROPONIN I 0.13 NG/ML (< 0.10)
--- NOTE | 2019-12-15 07:10 | ECGEPIP ---
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
[2019-12-15] MEDS: SYMBICORT 160/4.5MCG INHALER 6GM INH SCH (07:56)
[2019-12-15] MEDS: TIOTROPIUM INHALER/CAPSULE (SPIRIVA) INH SCH (07:56)
[2019-12-15 08:00] VITALS: BP 160/82
[2019-12-15] MEDS: NICOTINE 14 MG/24 HR TRANSDERMAL TD SCH (09:00)
[2019-12-15] MEDS ORDERED: VALSARTAN 80 MG TAB (DIOVAN) PO SCH (09:00)
[2019-12-15] MEDS ORDERED: LEVEMIR (INSULIN DETEMIR) 1 UNITS/0.01ML SC SCH (09:00)
[2019-12-15] MEDS ORDERED: atenoloL 25 MG TAB PO SCH (09:00)
[2019-12-15] MEDS ORDERED: ATORVASTATIN 20 MG TAB PO SCH (09:00)
[2019-12-15] MEDS ORDERED: methylPREDNISolone INJ 40 MG/1 ML VIAL (J2920) IV SCH ×2 (09:00→21:00)
[2019-12-15] MEDS ORDERED: PANTOPRAZOLE 40MG TAB (PROTONIX) PO SCH (09:00)
--- NOTE | 2019-12-15 09:41 | ECGEPIP ---
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
[2019-12-15] MEDS: HEPARIN SOD (PORCINE) 5000UNITS/ML VIAL (J1644 PER 1000UNITS) SC SCH (09:44)
[2019-12-15 09:45] VITALS: BP 160/82
[2019-12-15] MEDS: GABAPENTIN 300 MG CAP PO SCH (09:46)
[2019-12-15] MEDS: HumaLOG INSULIN (NovoLOG) PER UNIT SC SCH ×2 (09:48→12:50)
[2019-12-15] MEDS ORDERED: LASI40TA9 PO (11:12)
[2019-12-15 12:00] VITALS: BP 126/73
--- NOTE | 2019-12-15 12:52 | DS.PDOC ---
Discharge Summary General Date of Admission December 14, 2019 at 15:44 Date of Discharge 12/15/19 Discharge Summary PROCEDURES PERFORMED DURING STAY: ECHO: Dilated left ventricle with severe global hypokinesis. Distal anterior wall and apex appear akinetic. Overall left ventricular ejection fraction (LVEF) estimated at approximately 20-25%. Right ventricle does not appear grossly dilated and is hypokinetic. Impression: Dilated left ventricle with severe left ventricle systolic dysfunction that is principally global even though distal anterior wall and apex appeared to be akinetic. Overall estimated LVEF 20-25%. Grade 2 diastolic dysfunction. Moderate mitral insufficiency, likely secondary to LV dysfunction. High central venous pressure and at least moderately severe pulmonary hypertension. His calculated pulmonary artery pressure was in high 60s. DISCHARGE DIAGNOSES: Acute Systolic and diastolic CHF exacerbation with EF of 20% to 25%, grade 2 diastolic dysfunction. Severe pulmonary hypertension with right heart failure. COPD exacerbation SECONDARY DIAGNOSIS: Hypertension, diabetes mellitus, cervical spondylitis, L3-L4 discitis on IV antibiotics, COPD, history of active smoking, history of noncompliance in the past, PAD with right leg stent, History of orthopedic surgeries on his neck, back, elbows, arms. COMPLICATIONS/CHIEF COMPLAINT: CHF. HISTORY OF PRESENT ILLNESS: See History and physical HOSPITAL COURSE: This is a 69 years old white male with past medical history of hypertension, diabetes mellitus, COPD, active smoker, cervical spondylitis, L3- L4 discitis on IV antibiotics, was recently discharged from [facility] in [place] for discitis and had a PICC line placed in and is receiving oxacillin IV. Patient does not remember the dosage but he gets through home care services. He presented to ED with progressively worsening SOB for 3 days more pronounced on lying down, no cough, no phlegm, no chest pain. Bill was found to have CHF exacerbation and COPD exacerbation. He was managed with IV diuretics with good negative balance , Nebs , Iv steroids. Today he feels better and able to lay down flat though still has significant pedal edema. I wanted him to stay 1 more day for some more diuresis however he insists on going home as his home health nurse from the [facility] will be coming tomorrow and he says he cannot miss that appointment. I offered to call the Home health service to have it scheduled for a day later but patient is adamant about going home today. Patient will be discharged AMA. He did allow us to do the echo before he left. His echo results came back showing acute severe systolic and diastolic CHF with severe pulmonary hypertension and right heart failure. This was communicated to his PMD Dr Santi Ramirez at the [facility]. DISCHARGE MEDICATIONS: Please see below. ALLERGIES: Please see below. PHYSICAL EXAMINATION ON DISCHARGE: VITAL SIGNS: Please see below. GENERAL: Comfortable laying in bed with 1 pillow, speaking in full sentences HEENT: Normocephalic atraumatic,moist mucous membranes anicteric eyes. NECK: JVD present, no thyromegaly CARDIOVASCULAR EXAMINATION: Normal S1, S2, no rub, murmur or gallop RESPIRATORY EXAMINATION: Scattered bilateral wheezing present. ABDOMINAL EXAMINATION: Soft nontender, normal bowel sounds. EXTREMITIES: Bilateral 2+ pedal edema NEUROLOGICAL EXAMINATION: No focal neurodeficits. PSYCHIATRIC EXAMINATION: Alert, oriented x 3 LABORATORY DATA: Please see below. ACTIVITY: [As tolerated]. DIET: carb consitent, with 1.5 liters fluid restriction DISCHARGE PLAN: Home DISPOSITION: AMA DISCHARGE INSTRUCTIONS: Follow up with PMD in 1 week ITEMS TO FOLLOWUP ON ON OUTPATIENT: Follow up ECHO DISCHARGE CONDITION: [Stable]. TIME SPENT ON DISCHARGE: 35 minutes. Vital Signs/I&Os Vital Signs Date Time Temp Pulse Resp B/P (MAP) Pulse Ox O2 Delivery O2 Flow Rate FiO2 12/15/19 12:00 98.1 76 17 126/73 (90) 99 Room Air 12/14/19 17:15 1.0 I&O- Last 24 Hours up to 6 AM 12/15/19 06:00 Intake Total 1200 ml Output Total 2425 ml Balance -1225 ml Laboratory Data Labs 24H Laboratory Tests 2 12/14/19 14:04: Total Creatine Kinase 66, Creatine Kinase MB 3.2, Creatine Kinase MB Relative Index 4.85H, Troponin I 0.21#H 12/14/19 15:24: Coronavirus (COVID-19)(PCR) NEGATIVE 12/14/19 18:11: Bedside Glucose (Misc Panel) 133H 12/14/19 20:18: Bedside Glucose (Misc Panel) 307H 12/14/19 21:48: Troponin I 0.17H 12/15/19 05:04: Troponin I 0.13#H, Nucleated Red Blood Cells % (auto) 0.0, Anion Gap 9, Glomerular Filtration Rate > 60.0, Calcium Level 8.7L, Magnesium Level 1.9, Total Bilirubin 0.3, Aspartate Amino Transf (AST/SGOT) 16, Alanine Aminot ransferase (ALT/SGPT) 10L, Alkaline Phosphatase 79, VK-Ubf-G-Type Natriuretic Peptide 00920K, Total Protein 6.7, Albumin 2.2L, Albumin/Globulin Ratio 0.5 12/15/19 11:50: Bedside Glucose (Misc Panel) 249H CBC/BMP Laboratory Tests 12/15/19 05:04 FSBS Laboratory Tests Test 12/14/19 18:11 12/14/19 20:18 12/15/19 11:50 Range/Units Bedside Glucose (Misc Panel) 133 307 249 83-110 MG/DL Discharge Medications Scheduled Amitriptyline HCl (Amitriptyline HCl) 10 Mg Tablet, 10 MG PO QHS, (Reported) NEW RX FROM LAST ADMISSION FROM [facility] PATIENT DID NOT START Amlodipine Besylate (Amlodipine Besylate) 10 Mg Tablet, 5 MG PO DAILY, (Reported) NEW RX FROM LAST ADMISSION AT [facility] DID NOT START Aspirin (Aspirin EC) 325 Mg Tabec, 325 MG PO QPM, (Reported) Atenolol (Atenolol) 50 Mg Tablet, 50 MG PO DAILY, (Reported) NEW RX FROM LAST ADMISSION AT [facility] PATIENT HAS NOT STARTED Atorvastatin Calcium (Atorvastatin Calcium) 80 Mg Tablet, 40 MG PO DAILY, (Reported) Budesonide/Formoterol (Symbicort 160-4.5 Mcg Inhaler) 60 Puff/Inhaler Aers, 2 P UFF INH BID, (Reported) Furosemide (Lasix) 40 Mg Tablet, 40 MG PO DAILY Gabapentin (Gabapentin) 300 Mg Capsule, 300 MG PO TID, (Reported) Insulin Human Lispro (Novolog) 100 U/Ml Inj, 1 DOSE SC ACHS, (Reported) PER SLIDING SCALE Naproxen Sodium (Aleve) 220 Mg Capsule, 440 MG PO QAM, (Reported) Naproxen Sodium (Aleve) 220 Mg Capsule, 220 MG PO QHS, (Reported) Oxacillin in Dextrose(Iso-Osm) (Oxacillin 1 gm/ 50 ml Inj) 1 Gm/50 Ml Froz.piggy, 12 GM IV ASDIRECTED, (Reported) IN D5W - ADMINISTER AT 12.5ML/HOUR Tiotropium [place] (Spiriva) 18 Mcg Cap.w.dev, 18 MCG INH DAILY, (Reported) TAKES AROUND 1500 Valsartan (Valsartan) 160 Mg Tablet, 160 MG PO DAILY, (Reported) Scheduled PRN Albuterol Sulf (Albuterol Sulfate) 2.5 Mg/3 Ml Vial.neb, 2.5 MG INH QID PRN for SHORTNESS OF BREATH, (Reported) Albuterol Sulfate (Ventolin Hfa) 18 Gm Hfa.aer.ad, 2 PUFFS INH QID PRN for SHORTNESS OF BREATH, (Reported) Baclofen (Baclofen) 10 Mg Tablet, 10 MG PO TID PRN for SPASMS, (Reported) Fluocinonide (Fluocinonide) 0.1% 120GM Cream..g., 1 DOSE TOP BID PRN for RASH/ITCHING, (Reported) APPLY TO HOTSPOTS Fluocinonide (Fluocinonide) 0.05% 15GM Oint...g., 1 DOSE TOP BID PRN for CLAUDINE H/ITCHING, (Reported) Hydrocodone/Acetaminophen (Hydrocodone-Acetamin 5-325 mg) 1 Tab Tab, 1 TAB PO QID PRN for PAIN, (Reported) Ketoconazole (Ketoconazole) 15 Gm Cream..g., 1 DOSE TOP DAILY PRN for FUNGAL INFECTION, (Reported) APPLY TO BOTTOM OF FEET AND ELBOWS Allergies Coded Allergies: No Known Allergies (Verified , 01/16/05) ELDA PAIGE MD December 15, 2019 12:52
--- NOTE | 2019-12-15 20:10 | ECHO ---
DATE OF PROCEDURE: 12/15/2019 REFERRING PHYSICIAN: Dr. Mckenna INDICATION: Congestive heart failure. Height 175 cm, weight 64 kg. DIMENSIONS: IVS: 1.0 LV: 6.0 LVPW: 1.3 LA: 4.3 Aorta: 3.4 IVC: 2.4 Mitral E wave velocity: 123 A wave: 52 E prime septal: 3.6 E prime lateral: 7.4 FINDINGS: The study is of good technical quality. The patient is in sinus rhythm with wide QRS complex. Dilated left ventricle with severe global hypokinesis. Distal anterior wall and apex appear akinetic. Overall left ventricular ejection fraction (LVEF) estimated at approximately 20-25%. Right ventricle does not appear grossly dilated and is hypokinetic. There is biatrial enlargement. Aortic valve is sclerotic but has preserved mobility. There are degenerative abnormalities of mitral valve but mobility of mitral leaflets is preserved as well. No obvious prolapse is seen. Tricuspid and pulmonic valves appear normal. There is small noncompressive pericardial effusion. Inferior vena cava is dilated but collapses with inspiration. Aortic root appears normal. Aortic arch and abdominal aorta were poorly visualized. Doppler interrogation reveals no aortic stenosis and trace aortic insufficiency. There is approximately moderate mitral insufficiency, likely secondary to left ventricular (LV) dysfunction. Moderate tricuspid insufficiency is seen. Calculated pulmonary artery pressure is at a minimum in high 60s corresponding to moderately severe pulmonary hypertension. Mitral inflow pattern and tissue Doppler imaging of mitral annulus revealed grade 2 diastolic dysfunction. CONCLUSIONS: 1. Study is of good technical quality, patient is in sinus rhythm. 2. Dilated left ventricle with severe left ventricle systolic dysfunction that is principally global even though distal anterior wall and apex appeared to be akinetic. Overall estimated LVEF 20-25%. Grade 2 diastolic dysfunction. 3. Moderate mitral insufficiency, likely secondary to LV dysfunction. 4. High central venous pressure and at least moderately severe pulmonary hypertension. COMMENT: Subacute bacterial endocarditis (SBE) prophylaxis is not recommended. Both ischemic and nonischemic etiology of the patient's cardiomyopathy are to be considered.
== END 2019-12-15 14:47 | disposition left against medical advice (07) | DRG 190 ==
LOC: M ED 10:49 → M ED INP 15:44 → ENRESERV 16:01 → M PCU 17:37
PROVIDERS: ADMIT Internal Medicine; ATTEND Internal Medicine Nephrology
DX: J44.1 Chronic obstructive pulmonary disease with (acute) exacerbation (principal); I50.43 Acute on chronic combined systolic (congestive) and diastolic (congestive) heart failure; I11.0 Hypertensive heart disease with heart failure; M46.46 Discitis, unspecified, lumbar region; I27.20 Pulmonary hypertension, unspecified; E11.51 Type 2 diabetes mellitus with diabetic peripheral angiopathy without gangrene; M46.92 Unspecified inflammatory spondylopathy, cervical region; F17.200 Nicotine dependence, unspecified, uncomplicated; Z79.899 Other long term (current) drug therapy; Z79.4 Long term (current) use of insulin; Z79.82 Long term (current) use of aspirin

== ENCOUNTER 2019-12-22 11:25 | Emergency (ER) | payer OTHER, MEDICARE ==
[~2019-12-22] VITALS: Ht 175.3 cm; Wt 68.2 kg
[~2019-12-22 11:25] MED LIST changes: +ALBU83IN INH; +AMIT10TA PO; +AMLO10TA5 PO; +ATEN50TA2 PO; +BACL10TA2 PO; +FLUO1CRE4 TOP; +FLUO5OI TOP; +GABA-843 PO; +GABA-845 PO; +KETO2CR TOP; +LASI40TA9 PO; +NAPR220C14 PO; +SPIR1CAP INH; +VALS1TAB67 PO; +VENTAER INH; +[UNRECOGNIZED DRUG - CODE] IV
[2019-12-22 12:12] LABS: BASO # 0.1 10^3/uL (0.0-0.2); BASO % 0.6 % (0.0-1.0); EOS # 0.2 10^3/uL (0.0-0.5); EOS % 1.3 % (0.0-3.0); HEMATOCRIT 36.7 % (42.0-52.0); HEMOGLOBIN 11.4 g/dl (13.5-17.5); LYMPH # 0.5 10^3/uL (1.5-5.0); LYMPH % 4.1 % (24.0-44.0); MEAN CORPUSCULAR HEMOGLOBIN 29.4 pg (27.0-33.0); MEAN CORPUSCULAR HGB CONC 31.1 g/dl (32.0-36.5); MEAN CORPUSCULAR VOLUME 94.6 fl (80.0-96.0); MONO # 0.4 10^3/uL (0.0-0.8); NEUTROPHILS # 10.6 10^3/uL (1.5-8.5); NEUTROPHILS % 90.8 % (36.0-66.0); PLATELET COUNT, AUTOMATED 234 10^3/uL (150-450); RED BLOOD COUNT 3.88 10^6/uL (4.30-6.10); WHITE BLOOD COUNT 11.7 10^3/uL (4.0-10.0)
[2019-12-22] MEDS ORDERED: FUROSEMIDE 20MG/2ML VIAL (J1940) IV ONE (12:15)
[2019-12-22] MEDS ORDERED: NITROGLYCERIN 2% OINT 1 GM *U/D* PKT TOP ONE (12:15)
[2019-12-22] MEDS ORDERED: methylPREDNISolone INJ 125 MG/2 ML VIAL (J2930) IV ONE (12:15)
[2019-12-22 12:27] VITALS: BP 150/70
[2019-12-22 14:13] LABS: ALBUMIN 2.7 GM/DL (3.2-5.2); ALT/SGPT 14 U/L (12-78); BILIRUBIN,DIRECT < 0.1 MG/DL (0.0-0.2); BILIRUBIN,TOTAL 0.2 MG/DL (0.2-1.0); BLOOD UREA NITROGEN 19 MG/DL (7-18); CALCIUM LEVEL 8.7 MG/DL (8.8-10.2); CARBON DIOXIDE LEVEL 23 MEQ/L (21-32); CHLORIDE LEVEL 102 MEQ/L (98-107); CK-MB VALUE MASS 3.3 NG/ML (<3.6); CPK CREATINE PHOSPHOKINASE 62 U/L (39-308); CREATININE FOR GFR 0.66 MG/DL (0.70-1.30); GLOMERULAR FILTRATION RATE > 60.0 (>42); GLUCOSE, FASTING 234 MG/DL (70-100); MB/CK RELATIVE INDEX 5.32 (< OR =4); NT-PRO BNP 11648 PG/ML (<125); POTASSIUM SERUM 4.5 MEQ/L (3.5-5.1); SODIUM LEVEL 134 MEQ/L (136-145); TOTAL PROTEIN 7.2 GM/DL (6.4-8.2)
[2019-12-22 15:18] LABS: TROPONIN I 0.07 NG/ML (< 0.10)
[2019-12-22 15:30] VITALS: BP 144/72
--- NOTE | 2019-12-22 15:56 | REP ---
CHEST, SINGLE VIEW: Single view of the chest is performed. COMPARISON: 12/14/2019. There is persistent interstitial edema/infiltrate bilaterally. The heart is upper limits of normal in size. There is calcification of the thoracic aorta. The mediastinal silhouette is unchanged. Left arm PICC line is again seen with the tip in the superior vena cava. IMPRESSION: No change since the prior study. Electronically Signed by Rafale Cassidy MD 12/22/2019 04:39 P
--- NOTE | 2019-12-22 18:49 | ECGEPIP ---
[facility] - ED Test Date: 2019-12-22 Pat Name: GELACIO WANG Department: Room: - Gender: Male Craniologist: JULIO : 1950 Requested By: Mayur Simpson Order Number: [id number] Reading MD: Bertram Nicole Measurements Intervals [place] Rate: 91 P: 66 ME: 161 QRS: 21 QRSD: 110 T: 110 QT: 338 QTc: 417 Interpretive Statements SINUS RHYTHM POSSIBLE LEFT ATRIAL ENLARGEMENT INDETERMINATE AXIS RIGHT BUNDLE BRANCH BLOCK MODERATE T-WAVE ABNORMALITY, CONSIDER LATERAL ISCHEMIA SIMILAR TO 12/15/19 Electronically Signed on 12-22-2019 18:49:43 EDT by Bertram Nicole
== END 2019-12-22 16:13 | disposition home or self-care (01) ==
LOC: M ED 11:25
DX: I50.43 Acute on chronic combined systolic (congestive) and diastolic (congestive) heart failure (principal); I11.0 Hypertensive heart disease with heart failure; E11.9 Type 2 diabetes mellitus without complications; J45.909 Unspecified asthma, uncomplicated; E78.5 Hyperlipidemia, unspecified; J44.9 Chronic obstructive pulmonary disease, unspecified; M46.46 Discitis, unspecified, lumbar region; Z79.899 Other long term (current) drug therapy; Z79.51 Long term (current) use of inhaled steroids; Z79.4 Long term (current) use of insulin; Z79.2 Long term (current) use of antibiotics; Z79.1 Long term (current) use of non-steroidal anti-inflammatories (NSAID)
CPT/HCPCS: 36415; 71045; 80048; 80076; 82550; 82553; 83880; 84484; 85025; 93005; 93041; 94760; 96374; 96375; 99285; J1940; J2930

== ENCOUNTER 2020-11-09 13:03 | Emergency (ER) | payer OTHER ==
[~2020-11-09] VITALS: Ht 175.3 cm; Wt 65.9 kg
[~2020-11-09 13:03] MED LIST changes: -AMIT10TA PO; +AMIT10TA7 PO; -AMLO10TA5 PO; +AMLO1TAB25 PO; +GABA-282 PO; -GABA-843 PO; +HYDR-3490 PO; -HYDR25TAB PO
[2020-11-09 13:04] VITALS: BP 162/73
[2020-11-09] MEDS ORDERED: AMOX500C PO (13:22)
[2020-11-09] MEDS ORDERED: NOVOINJ SC (13:22)
[2020-11-09] MEDS ORDERED: LANTINJ4 SC (13:22)
[2020-11-09] MEDS ORDERED: LEVO50TA5 PO (13:22)
[2020-11-09] MEDS ORDERED: FURO40TA2 PO (13:22)
[2020-11-09] MEDS ORDERED: ASPI81CH33 PO (13:22)
[2020-11-09] MEDS ORDERED: SYMB16INH INH (13:22)
== END 2020-11-09 15:41 | disposition left against medical advice (07) ==
LOC: M ED 13:03
DX: T87.89 Other complications of amputation stump (principal); X58.XXXA Exposure to other specified factors, initial encounter; Y92.89 Other specified places as the place of occurrence of the external cause; E11.9 Type 2 diabetes mellitus without complications; I11.0 Hypertensive heart disease with heart failure; I50.9 Heart failure, unspecified; J44.9 Chronic obstructive pulmonary disease, unspecified; Z79.899 Other long term (current) drug therapy; Z79.82 Long term (current) use of aspirin; Z79.4 Long term (current) use of insulin; F17.210 Nicotine dependence, cigarettes, uncomplicated

== ENCOUNTER 2021-07-04 12:35 | Emergency (ER) | payer OTHER ==
[2021-07-04 12:35] VITALS: BP 192/81
[~2021-07-04 12:35] MED LIST changes: +AMOX500C PO; +ASPI81CH33 PO; +FURO40TA2 PO; +GABA-283 PO; -GABA-845 PO; +LANTINJ4 SC; +LEVO50TA5 PO; +NOVOINJ SC
--- OUTSIDE RECORDS SUMMARY | 2021-07-04 12:41 | CCD ---
Author Author [facility] Organization [facility] Address Unknown Phone Unavailable Care Team Providers Care Ex Chef Name Role Phone Marky, Lance Unavailable PROBLEMS Type Condition ICD9-CM Code JXB22-ED Code Onset Dates Condition S tatus W/U Status Risk SNOMED Code Notes Problem History of left below knee amputation Z89.512 Ac tive confirmed 035221950665885 Problem Peripheral arterial disease I73.9 Active confirmed 786876055 Problem History of right above knee amputation Z89.611 A ctive confirmed 353226887715213 Problem Below-knee amputation S88.119A Active confirmed 717122704 Problem Wound, open with complication T14.8XXA Active confi rmed [id number] Problem PAD (peripheral artery disease) I73.9 Active confi rmed [id number] Problem Non-pressure chronic ulcer o f unspecified part of unspecified lower leg with unspecified severity L97.909 Active confirmed 2664 9005 ALLERGIES No Known Allergies ENCOUNTERS from 1950 to 2021-04-11 Encounter Location Date Provider [facility] [address] [place] [address] 14 2020 Lance Negro History of right above knee amputation Z 89.611 IMMUNIZATIONS No Information SOCIAL HISTORY Tobacco Use: Social History Observation Description Date Details (start date - stop date) Current Smoker Sex Assigned At : Social History Observation Description Sex Assigned At Unknown Tobacco Use/Smoking Question Answer Notes Are you a current smoker How often do you smoke cigarettes? every day REASON FOR REFERRAL No Information VITAL SIGNS Height 66 in 14 Mar, 2021 Heart Rate 64 /min 14 Mar, 2021 Respiratory Rate 16 /min 14 Mar, 2021 Oximetry 98 % 14 Mar, 2021 Blood pressure systolic 130 mmHg 14 Mar, 2021 Blood pressure diastolic 64 mmHg 14 Mar, 2021 MEDICATIONS Medication SIG (Take, Route, Frequency, Duration) Notes Start Da te End Date Status Atorvastatin Calcium 80 MG half tablet Orally Once a day Active Mupirocin 2 % 1 application Externally Three times a day for 5 day(s) Not-Taking Albuterol Sulfate (2.5 MG/3ML) 0.083% 3 ml as needed Inhalation sunil ry 6 hrs Not-Taking Gabapentin 300 MG 1 capsule Orally Three times a day Active Pulmicort Flexhaler 180 MCG/ACT 1 puff Inhalation Twice a day Active Proventil HFA 108 (90 Base) MCG/ACT 1 puff as needed Inhalation sunil ry 4 hrs Not-Taking Lidex Unknown Afrin Nasal Counce 0.05 % 2 sprays in each nostril as needed Nasally Twice a day for 3 day(s) Not-Taking Fluocinonide 0.05 % 1 application Externally Twice a day Unknown HYDROcodone-Acetaminophen 5-325 MG 1 tablet as needed Orally every 6 hrs Active Lantus 100 UNIT/ML as directed Subcutaneous Active Amoxicillin 500 MG 1 capsule Orally every 6 hrs for 10 days Oct, Active Baclofen 10 MG 1 tablet as needed Orally Three times a day Not-Taking Carvedilol 3.125 MG 1 tablet with food Orally Twice a day for 30 day( s) Active Ketoconazole 2 % 1 application Externally Once a day Not-Taking Amitriptyline HCl 10 MG 1 tablet at bedtime Orally Once a day for 3 0 day(s) Active Symbicort 160-4.5 MCG/ACT 2 puffs Inhalation Twice a day Active Furosemide 40 MG 1 tablet Orally Twice a day Active Aspirin EC 325 MG 1 tablet Orally Once a day for 30 day(s) Not-Taking Aspirin EC 81 MG 1 tablet Orally Once a day for 30 day(s) Active NovoLOG 100 UNIT/ML as directed Subcutaneous Active Aquacel Foam 4"x4" - as directed Externally Apply to right ankle and wrap with 4x4 roll gauze once daily. for 90 days November, Active Spiriva Respimat 2.5 MCG/ACT 2 puffs Inhalation Once a day Active Valsartan 160 MG 1 tablet Orally Once a day for 30 day(s) Active Naproxen Sodium 220 MG 1 tablet with food or milk as needed Orally every 12 hrs Active Levothyroxine Sodium 50 MCG 1 tablet in the morning on an empty stomach Orally Once a day for 30 day(s) Active PROCEDURES No Information RESULTS No Results REASON FOR VISIT 3 week follow up of right above-knee amputation MEDICAL (GENERAL) HISTORY Type Description Date Medical History Thyroid disease Medical History HTN Medical History Hyperlipidemia Medical History DM Surgical History Left-below knee amputation 02/25/2020 Surgical History Left below-knee dictation revision Surgical History Right angiogram 12/2020 Surgical History Right above knee amputation 02/2021 Hospitalization History srugical needs Goals Section No Information Health Concerns No Information MEDICAL EQUIPMENT No Information MENTAL STATUS No Information FUNCTIONAL STATUS No Information ASSESSMENTS Encounter Date Diagnosis Assessment Notes Treatment Notes Treatm ent Clinical Notes Mar, History of right above knee amputation (ICD-10 - Z89.611) PLAN OF TREATMENT Next Appt Details prn Reason: Insurance Providers Payer Name Payer Address Payer Phone Insured Name Patient Relati onship to Insured Coverage Start Date Coverage End Date [facility] [employer] [address] [facility] [id number] [place] self
--- OUTSIDE RECORDS SUMMARY | 2021-07-04 12:42 | CCD ---
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 Name Role Phone Keon ALEJANDRO MD Unavailable Unavailable Keon ALEJANDRO MD Unavailable Unavailable Keon ALEJANDRO MD Unavailable Unavailable Keon ALEJANDRO MD Unavailable Unavailable Keon ALEJANDRO MD Unavailable Unavailable Keon ALEJANDRO MD Unavailable Unavailable Keon ALEJANDRO MD Unavailable Unavailable Keon ALEJANDRO MD Unavailable Unavailable Keon ALEJANDRO MD Unavailable Unavailable Keon ALEJANDRO MD Unavailable Unavailable Keon ALEJANDRO MD Unavailable Unavailable Keon ALEJANDRO MD Unavailable Unavailable Keon ALEJANDRO MD Unavailable Unavailable Keon ALEJANDRO MD Unavailable Unavailable Keon ALEJANDRO MD Unavailable Unavailable Keon ALEJANDRO MD Unavailable Unavailable Keon ALEJANDRO MD Unavailable Unavailable Keon ALEJANDRO MD Unavailable Unavailable Keon ALEJANDRO MD Unavailable Unavailable Keon ALEJANDRO MD Unavailable Unavailable Keon ALEJANDRO MD Unavailable Unavailable Keon ALEJANDRO MD Unavailable Unavailable Keon ALEJANDRO MD Unavailable Unavailable Keon ALEJANDRO MD Unavailable Unavailable Keon ALEJANDRO MD Unavailable Unavailable Keon ALEJANDRO MD Unavailable Unavailable Keon ALEJANDRO MD Unavailable Unavailable Keon ALEJANDRO MD Unavailable Unavailable Keon ALEJANDRO MD Unavailable Unavailable Keon ALEJANDRO MD Unavailable Unavailable Keon ALEJANDRO MD Unavailable Unavailable Keon ALEJANDRO MD Unavailable Unavailable Keon ALEJANDRO MD Unavailable Unavailable Keon ALEJANDRO MD Unavailable Unavailable Keon ALEJANDRO MD Unavailable Unavailable FLAVIA, GINA MD Unavailable Unavailable FLAVIA, GINA MD Unavailable Unavailable FLAVIA, GINA MD Unavailable Unavailable FLAVIA, GINA MD Unavailable Unavailable FLAVIA, GINA MD Unavailable Unavailable FLAVIA, GINA MD Unavailable Unavailable FLAVIA, GINA MD Unavailable Unavailable FLAVIA, GINA MD Unavailable Unavailable FLAVIA, GINA MD Unavailable Unavailable FLAVIA, GINA MD Unavailable Unavailable FLAVIA, GINA MD Unavailable Unavailable FLAVIA, GINA MD Unavailable Unavailable FLAVIA, GINA MD Unavailable Unavailable FLAVIA, GINA MD Unavailable Unavailable FLAVIA, GINA MD Unavailable Unavailable FLAVIA, GINA MD Unavailable Unavailable FLAVIA, GINA MD Unavailable Unavailable FLAVIA, GINA MD Unavailable Unavailable FLAVIA, GINA MD Unavailable Unavailable FLAVIA, GINA MD Unavailable Unavailable FLAVIA, GINA MD Unavailable Unavailable FLAVIA, GINA MD Unavailable Unavailable FLAVIA, GINA MD Unavailable Unavailable FLAVIA, GINA MD Unavailable Unavailable FLAVIA, GINA MD Unavailable Unavailable FLAVIA, GINA MD Unavailable Unavailable FLAVIA, GINA MD Unavailable Unavailable FLAVIA, GINA MD Unavailable Unavailable FLAVIA, GINA MD Unavailable Unavailable FLAVIA, GINA MD Unavailable Unavailable FLAVIA, GINA MD Unavailable Unavailable Re-disclosure Warning The records that you are about to access may contain information from federally-assisted alcohol or drug abuse programs. If such information is present, then the following federally mandated warning applies: This information has been disclosed to you from records protected by federal confidentiality rules (42 CFR part 2). The federal rules prohibit you from making any further disclosure of this information unless further disclosure is expressly permitted by the written consent of the person to whom it pertains or as otherwise permitted by 42 CFR part 2. A general authorization for the release of medical or other information is NOT sufficient for this purpose. The Federal rules restrict any use of the information to criminally investigate or prosecute any alcohol or drug abuse patient.The records that you are about to access may contain highly sensitive health information, the redisclosure of which is protected by Article 27-F of the [facility] Public Health law. If you continue you may have access to information: Regarding HIV / AIDS; Provided by facilities licensed or operated by the [facility] Office of Mental Health; or Provided by the [facility] Office for People With Developmental Disabilities. If such information is present, then the following [facility] mandated warning applies: This information has been disclosed to you from confidential records which are protected by state law. State law prohibits you from making any further disclosure of this information without the specific written consent of the person to whom it pertains, or as otherwise permitted by law. Any unauthorized further disclosure in violation of state law may result in a fine or retirement sentence or both. A general authorization for the release of medical or other information is NOT sufficient authorization for further disc losure. Family History Family Member Name Family Member Gender Family Member Status Date o f Status Description Data Source(s) Unknown Unknown Problem [facility] ([facility] father Encounters Encounter Providers Location Date Indications Data Source(s ) Outpatient Attender: CLAUDE ALEJANDRO MD 04/11/2021 01:19: 00 PM EDT [facility] Outpatient [facility] 04/11/2021 12:00:00 AM EDT eCW1 ([facility]) Outpatient Attender: CLAUDE ALEJANDRO MD 03/21/2021 01:22: 00 PM EDT [facility] 03/21/2021 12:00:00 AM EDT eCW1 ([facility]) Outpatient [facility] 03/10/2021 12:00:00 AM EDT eCW1 ([facility]) Outpatient Attender: CLAUDE ALEJANDRO MD 02/14/2021 01:47: 00 PM EDT [facility] 02/14/2021 12:00:00 AM EDT eCW1 ([facility]) Outpatient [facility] 02/07/2021 12:00:00 AM EDT eCW1 ([facility]) Outpatient [facility] 02/07/2021 12:00:00 AM EDT eCW1 ([facility]) Outpatient Attender: CLAUDE ALEJANDRO MD 01/17/2021 02:16: 00 PM EDT [facility] 01/17/2021 12:00:00 AM EDT eCW1 ([facility]) Outpatient [facility] 01/09/2021 12:00:00 AM EDT eCW1 ([facility]) Outpatient Attender: CLAUDE ALEJANDRO MD 01/03/2021 01:57: 00 PM EDT [facility] (Phone Tele) Telehealth Phone Call [facility] 01/03/2021 12:00:00 AM EDT eCW1 ([facility]) Outpatient [facility] 01/03/2021 12:00:00 AM EDT eCW1 ([facility]) Outpatient Attender: CLAUDE ALEJANDRO MD 12/20/2020 02:05: 00 PM EDT [facility] Outpatient [facility] 12/20/2020 12:00:00 AM EDT eCW1 ([facility]) Outpatient [facility] 12/20/2020 12:00:00 AM EDT eCW1 ([facility]) Outpatient Attender: CLAUDE ALEJANDRO MD 12/06/2020 01:45: 00 PM EDT [facility] Outpatient [facility] 12/06/2020 12:00:00 AM EDT eCW1 ([facility]) Outpatient [facility] 11/24/2020 12:00:00 AM EDT eCW1 ([facility]) Outpatient Attender: CLAUDE ALEJANDRO MD 11/22/2020 01:56: 00 PM EDT [facility] Outpatient [facility] 11/22/2020 12:00:00 AM EDT eCW1 ([facility]) Outpatient [facility] 11/09/2020 12:00:00 AM EDT eCW1 ([facility]) Outpatient [facility] 10/25/2020 12:00:00 AM EDT eCW1 ([facility]) Outpatient Attender: CLAUDE ALEJANDRO MD 10/04/2020 03:53: 00 PM EST [facility] Outpatient [facility] 10/04/2020 12:00:00 AM EST eCW1 ([facility]) Outpatient Attender: CLAUDE ALEJANDRO MD 06/21/2020 11:18: 00 AM EST [facility] 06/21/2020 12:00:00 AM EST eCW1 ([facility]) Outpatient Attender: CLAUDE ALEJANDRO MD 05/24/2020 11:30: 00 AM EDT [facility] Outpatient [facility] 05/24/2020 12:00:00 AM EDT eCW1 ([facility]) Outpatient Attender: CLAUDE ALEJANDRO MD 05/10/2020 11:32: 00 AM EDT [facility] 05/10/2020 12:00:00 AM EDT eCW1 ([facility]) Outpatient Attender: CLAUDE ALEJANDRO MD 04/19/2020 03:38: 00 PM EDT [facility] Outpatient Attender: CLAUDE ALEJANDRO MD 04/05/2020 01:00: 00 PM EDT [facility] Medications Medication Brand Name Start Date Product Form Dose Route Admi nistrative Instructions Pharmacy Instructions Status Indications Reaction Description Data Source(s) 500 mg 02/07/2021 12:00:00 AM EDT capsule 40 TAKE ONE CAPSULE BY MOUTH EVERY 6 HOURS TAKE ONE CAPSULE BY MOUTH EVERY 6 HOURS SOLD: 02/09/2021 [facility] 500 mg 01/10/2021 12:00:00 AM EDT capsule 40 TAKE ONE CAPSULE BY MOUTH EVERY 6 HOURS FOR 10 DAYS TAKE ONE CAPSULE BY MOUTH EVERY 6 HOURS FOR 10 DAYS SO LD: 01/13/2021 [facility] 500 mg 12/20/2020 12:00:00 AM EDT capsule 40 TAKE ONE CAPSULE BY MOUTH EVERY 6 HOURS FOR 10 DAYS TAKE ONE CAPSULE BY MOUTH EVERY 6 HOURS FOR 10 DAYS SO LD: 12/21/2020 [facility] Aquacel Foam 4"x4" - Aquacel Foam 4"x4" - 12/13/2020 12:00:00 AM EDT active Aquacel Foam 4"x4" - eCW1 ([facility]) Aquacel Foam 4"x4" - Aquacel Foam 4"x4" - 12/13/2020 12:00:00 AM EDT active Aquacel Foam 4"x4" - eCW1 ([facility]) Aquacel Foam 4"x4" - Aquacel Foam 4"x4" - 12/13/2020 12:00:00 AM EDT active Aquacel Foam 4"x4" - eCW1 ([facility]) Aquacel Foam 4"x4" - Aquacel Foam 4"x4" - 12/13/2020 12:00:00 AM EDT active Aquacel Foam 4"x4" - eCW1 ([facility]) Aquacel Foam 4"x4" - Aquacel Foam 4"x4" - 12/13/2020 12:00:00 AM EDT active Aquacel Foam 4"x4" - eCW1 ([facility]) Aquacel Foam 4"x4" - Aquacel Foam 4"x4" - 12/13/2020 12:00:00 AM EDT active Aquacel Foam 4"x4" - eCW1 ([facility]) Aquacel Foam 4"x4" - Aquacel Foam 4"x4" - 12/13/2020 12:00:00 AM EDT active Aquacel Foam 4"x4" - eCW1 ([facility]) Aquacel Foam 4"x4" - Aquacel Foam 4"x4" - 12/13/2020 12:00:00 AM EDT active Aquacel Foam 4"x4" - eCW1 ([facility]) Aquacel Foam 4"x4" - Aquacel Foam 4"x4" - 12/13/2020 12:00:00 AM EDT active Aquacel Foam 4"x4" - eCW1 ([facility]) Aquacel Foam 4"x4" - Aquacel Foam 4"x4" - 12/13/2020 12:00:00 AM EDT active Aquacel Foam 4"x4" - eCW1 ([facility]) Aquacel Foam 4"x4" - Aquacel Foam 4"x4" - 12/13/2020 12:00:00 AM EDT active Aquacel Foam 4"x4" - eCW1 ([facility]) Aquacel Foam 4"x4" - Aquacel Foam 4"x4" - 12/13/2020 12:00:00 AM EDT active Aquacel Foam 4"x4" - eCW1 ([facility]) Amoxicillin 500 MG Oral Capsule Amoxicillin 500 MG 11/24/2020 12:00 :00 AM EDT 1.0 {capsule} active Amoxicillin 500 MG eCW1 ([facility]) Amoxicillin 500 MG Oral Capsule Amoxicillin 500 MG 11/24/2020 12:00 :00 AM EDT 1.0 {capsule} active Amoxicillin 500 MG eCW1 ([facility]) Amoxicillin 500 MG Oral Capsule Amoxicillin 500 MG 11/24/2020 12:00 :00 AM EDT 1.0 {capsule} active Amoxicillin 500 MG eCW1 ([facility]) Amoxicillin 500 MG Oral Capsule Amoxicillin 500 MG 11/24/2020 12:00 :00 AM EDT 1.0 {capsule} active Amoxicillin 500 MG eCW1 ([facility]) Amoxicillin 500 MG Oral Capsule Amoxicillin 500 MG 11/24/2020 12:00 :00 AM EDT 1.0 {capsule} active Amoxicillin 500 MG eCW1 ([facility]) Amoxicillin 500 MG Oral Capsule Amoxicillin 500 MG 11/24/2020 12:00 :00 AM EDT 1.0 {capsule} active Amoxicillin 500 MG eCW1 ([facility]) Amoxicillin 500 MG Oral Capsule Amoxicillin 500 MG 11/24/2020 12:00 :00 AM EDT 1.0 {capsule} active Amoxicillin 500 MG eCW1 ([facility]) Amoxicillin 500 MG Oral Capsule Amoxicillin 500 MG 11/24/2020 12:00 :00 AM EDT 1.0 {capsule} active Amoxicillin 500 MG eCW1 ([facility]) Amoxicillin 500 MG Oral Capsule Amoxicillin 500 MG 11/24/2020 12:00 :00 AM EDT 1.0 {capsule} active Amoxicillin 500 MG eCW1 ([facility]) Amoxicillin 500 MG Oral Capsule Amoxicillin 500 MG 11/24/2020 12:00 :00 AM EDT 1.0 {capsule} active Amoxicillin 500 MG eCW1 ([facility]) Amoxicillin 500 MG Oral Capsule Amoxicillin 500 MG 11/24/2020 12:00 :00 AM EDT 1.0 {capsule} active Amoxicillin 500 MG eCW1 ([facility]) Amoxicillin 500 MG Oral Capsule Amoxicillin 500 MG 11/24/2020 12:00 :00 AM EDT 1.0 {capsule} active Amoxicillin 500 MG eCW1 ([facility]) Amoxicillin 500 MG Oral Capsule Amoxicillin 500 MG 11/24/2020 12:00 :00 AM EDT 1.0 {capsule} active Amoxicillin 500 MG eCW1 ([facility]) Amoxicillin 500 MG Oral Capsule Amoxicillin 500 MG 11/24/2020 12:00 :00 AM EDT 1.0 {capsule} active Amoxicillin 500 MG eCW1 ([facility]) 500 mg 10/04/2020 12:00:00 AM EST capsule 30 TAKE ONE CAPSULE BY MOUTH EVERY 8 HOURS FOR 5 DAYS TAKE ONE CAPSULE BY MOUTH EVERY 8 HOURS FOR 5 DAYS NING [facility] 500 mg 10/04/2020 12:00:00 AM EST capsule 30 TAKE ONE CAPSULE BY MOUTH EVERY 8 HOURS FOR 5 DAYS TAKE ONE CAPSULE BY MOUTH EVERY 8 HOURS FOR 5 DAYS NING [facility] Amoxicillin 500 MG Oral Capsule Amoxicillin 500 MG 10/04/2020 12:00 :00 AM EST 1.0 {capsule} active Amoxicillin 500 MG eCW1 ([facility]) Amoxicillin 500 MG Oral Capsule Amoxicillin 500 MG 10/04/2020 12:00 :00 AM EST 1.0 {capsule} active Amoxicillin 500 MG eCW1 ([facility]) Amoxicillin 500 MG Oral Capsule Amoxicillin 500 MG 10/04/2020 12:00 :00 AM EST 1.0 {capsule} active Amoxicillin 500 MG eCW1 ([facility]) Amoxicillin 500 MG Oral Capsule Amoxicillin 500 MG 10/04/2020 12:00 :00 AM EST 1.0 {capsule} active Amoxicillin 500 MG eCW1 ([facility]) 500 mg 10/04/2020 12:00:00 AM EST capsule 30 TAKE ONE CAPSULE BY MOUTH EVERY 8 HOURS FOR 5 DAYS TAKE ONE CAPSULE BY MOUTH EVERY 8 HOURS FOR 5 DAYS NING [facility] Amoxicillin 500 MG Oral Capsule Amoxicillin 500 MG 10/04/2020 12:00 :00 AM EST 1.0 {capsule} active Amoxicillin 500 MG eCW1 ([facility]) Insurance Providers Payer name Policy type / Coverage type Policy ID Covered green party ID Covered green party's relationship to ivey Policy Ivey Plan Information MEDICARE A [id number] Self [id number] MEDICARE A [id number] [facility] [id number] [id number] Sp[facility] [id number] OTHER B [id number] Self [id number] OTHER B [id number] Self [id number] OTHER B [id number] Self [id number] SELF PAY UNAVAILABLE S UNAVAILA BLE OPTUM [place] O [id number] S [id number] MEDICARE [id number] SP [id number] 'S ADMINISTRATION [id number] SP [id number] MEDICARE C [id number] S [id number] [facility]/136E O [id number] S [id number] WEST O [id number] S [id number] WPS [facility] [id number] SP [id number] MEDICARE [id number] SP [id number] A [employer] FOR [place] O [id number] S [id number] MEDICARE C [id number] S [id number] A Medicare Natl Gov't Servi Medicare Primary [id number] Self [id number] Medicare Natl Gov't Servi Medicare Primary [id number] Self [id number] [employer] [id number] [id number] [place] [facility] [place] P [id number] S [id number] [facility]/136E [id number] SP [id number] [employer] O [id number] U [id number] [employer] PPO 2 [id number] 2 [id number] SELF PAY 2 UNAVAILABLE 1 UNAVAILA BLE [facility] [id number] [employer] PPO P [id number] P [id number] OPTUM [place] CCN [id number] SP [id number] [employer] P [id number] P [id number] [place] CCN OPTUM [id number] S [id number] [employer] [id number] S [id number] [place]ICARE [place] [id number] S [id number] [employer] [id number] S [id number] [place] [id number] S [id number] Problems, Conditions, and Diagnoses Code Display Name Description Problem Type Effective Dates Data Source(s) Z98.890 OTHER SPECIFIED POSTPROCEDURAL STATES OT HER SPECIFIED POSTPROCEDURAL STATES Diagnosis 04/11/2021 01:19:00 PM [facility] 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 Diagnosis 03/21/2021 01:22:00 PM [facility] I73.9 Peripheral vascular disease, unspecified PERIPHERAL VASCULAR DISEASE, UNSPECIFIED Diagnosis 03/21/2021 01:22:00 PM [facility] F17.210 Nicotine dependence, cigarettes, uncompl icated NICOTINE DEPENDENCE, CIGARETTES, UNCOMPLICATED Diagnosis 02/14/2021 01:47:00 PM [facility] I70.233 Atherosclerosis of [place] ar teries of right leg with ulceration of ankle ATHSCL [place] ARTERIES OF RIGHT LEG W ULCERATION OF ANKLE Di agnosis 02/14/2021 01:47:00 PM [facility] 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 NON- PRS CHRONIC ULCER OF RIGHT ANKLE W NECROSIS OF Diagnosis 021 02:16:00 PM [facility] I70.201 Unspecified atherosclerosis of [place] arteries of extremities, right leg UNSP ATHSCL [place] ARTERIES OF EXTREMITIES, RIGHT LEG Diagno sis 01/17/2021 02:16:00 PM [facility] L97.312 Non-pressure chronic ulcer of right ankl e with fat layer exposed NON-PRS CHRONIC ULCER OF RIGHT ANKLE W FAT LAYER E Diagnosis 12/06/2020 01:45: 00 PM [facility] Z48.02 Encounter for removal of sutures ENCOUNTER FOR R EMOVAL OF SUTURES Diagnosis 12/06/2020 01:45:00 PM [facility] T87.44 Infection of amputation stump, left lowe r extremity INFECTION OF AMPUTATION STUMP, LEFT LOWER EXTREMITY Diagnosis 11/22/2020 01:56:00 P M [facility] L97.926 Non-pressure chronic ulcer o f unspecified part of left lower leg with bone involvement without evidence of necrosis NON-PRS CHR ULC UNSP PRT L LW LEG W BNE INVL W/O EVD OF NECR Diagnosis 10/04/2020 03:53:00 PM [facility] 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, left lower leg, subsequent encounter COMPLETE TRAUM AMP AT LEV BETW KN AND AN KL, L LOW Diagnosis 06/21/2020 11:18:00 AM [facility] l T14.8XXD OTHER INJURY OF UNSPECIFIED BODY REGION, SUBS OTHER INJURY OF UNSPECIFIED BODY REGION, SUBS Diagnosis 06/21/2020 11:18:00 AM [facility] Z89.512 Acquired absence of left leg below knee ACQUIRED ABSENCE OF LEFT LEG BELOW KNEE Diagnosis 06/21/2020 11:18:00 AM [facility] l T14.8XXA OTHER INJURY OF UNSPECIFIED BODY REGION, INITIAL E OTHER INJURY OF UNSPECIFIED BODY REGION, INITIAL E Diagnosis 05/10/2020 11:32:00 AM ED T [facility] Z89.611 [id number] History of right above knee amputation Problem 04/11/2021 12:00:00 AM EDT eCW1 ([facility]) I73.9 [id number] Peripheral arterial disease Problem 01/04/20 12:00:00 AM EDT eCW1 ([facility]) L97.909 [id number] Non-pressure chronic ulcer of unspecified part of unspecified lower leg with unspecified severity Problem 06/21/2020 12:00:[address] eCW1 ([facility]) I73.9 [id number] PAD (peripheral artery disease) Problem 05/10/2020 12:00:00 AM EDT eCW1 ([facility]) T14.8XXA [id number] Wound, open with complication Problem 05/10/2020 12:00:00 AM EDT eCW1 ([facility]) Surgeries/Procedures No Information Results ID Date Data Source [id number] 03/06/2021 12:00:00 AM EDT [facility] Name Value Range Interpretation Code Description Data Candida rce(s) Supporting Document(s) SARS-CoV-2 (COVID-19) RNA [Presence] in Respiratory specimen by TONY with probe detection Negative [facility] This lab was ordered by [facility] and reported by [facility]. ID Date Data Source [id number] 01/05/2021 12:00:00 AM EDT [facility] Name Value Range Interpretation Code Description Data Candida rce(s) Supporting Document(s) SARS-CoV-2 (COVID-19) RNA [Presence] in Respiratory specimen by TONY with probe detection Negative [facility] This lab was ordered by [facility] and reported by [facility]. Procedure Social History Code Duration Value Status Description Data Source(s ) Smoking 04/11/2021 12:00:00 AM EDT Current Smoker completed Curre nt Smoker eCW1 ([facility]) Smoking 03/21/2021 12:00:00 AM EDT Current Smoker completed Curre nt Smoker eCW1 ([facility]) Smoking 02/14/2021 12:00:00 AM EDT Current Smoker completed Curre nt Smoker eCW1 ([facility]) Smoking 02/14/2021 12:00:00 AM EDT Current Smoker completed Curre nt Smoker eCW1 ([facility]) Smoking 01/17/2021 12:00:00 AM EDT Current Smoker completed Curre nt Smoker eCW1 ([facility]) Smoking 01/17/2021 12:00:00 AM EDT Current Smoker completed Curre nt Smoker eCW1 ([facility]) Smoking 01/17/2021 12:00:00 AM EDT Current Smoker completed Curre nt Smoker eCW1 ([facility]) Smoking 01/03/2021 12:00:00 AM EDT Current Smoker completed Curre nt Smoker eCW1 ([facility]) Smoking 01/03/2021 12:00:00 AM EDT Current Smoker completed Curre nt Smoker eCW1 ([facility]) Smoking 01/03/2021 12:00:00 AM EDT Current Smoker completed Curre nt Smoker eCW1 ([facility]) Smoking 12/20/2020 12:00:00 AM EDT Current Smoker completed Curre nt Smoker eCW1 ([facility]) Smoking 12/20/2020 12:00:00 AM EDT Current Smoker completed Curre nt Smoker eCW1 ([facility]) Smoking 12/06/2020 12:00:00 AM EDT Current Smoker completed Curre nt Smoker eCW1 ([facility]) Smoking 11/22/2020 12:00:00 AM EDT Current Smoker completed Curre nt Smoker eCW1 ([facility]) Smoking 11/22/2020 12:00:00 AM EDT Current Smoker completed Curre nt Smoker eCW1 ([facility]) Smoking 10/04/2020 12:00:00 AM EST Current Smoker completed Curre nt Smoker eCW1 ([facility]) Smoking 10/04/2020 12:00:00 AM EST Current Smoker completed Curre nt Smoker eCW1 ([facility]) Smoking 10/04/2020 12:00:00 AM EST Current Smoker completed Curre nt Smoker eCW1 ([facility]) Smoking 06/21/2020 12:00:00 AM EST Current Smoker completed Curre nt Smoker eCW1 ([facility]) Smoking 05/24/2020 12:00:00 AM EDT Current Smoker completed Curre nt Smoker eCW1 ([facility]) Smoking 05/10/2020 12:00:00 AM EDT Current Smoker completed Curre nt Smoker eCW1 ([facility]) Vital Signs ID Date Data Source UNK Name Value Range Interpretation Code Description Data Source(s) Heart rate 64 /min 64 /min eCW1 ([facility] [facility] Body height 66 [in_i] 66 [in_i] eCW1 ([facility]) Respiratory rate 16 /min 16 /min eCW1 ([facility]) Oxygen saturation in Arterial blood by Pulse oximetry 98 % 98 % eCW1 ([facility]) Body height 66 [in_i] 66 [in_i] eCW1 ([facility]) Heart rate 74 /min 74 /min eCW1 ([facility]) Respiratory rate 16 /min 16 /min eCW1 ([facility]) Oxygen saturation in Arterial blood by Pulse oximetry 98 % 98 % eCW1 ([facility]) Body height 66 [in_i] 66 [in_i] eCW1 ([facility]) Respiratory rate 16 /min 16 /min eCW1 ([facility]) Oxygen saturation in Arterial blood by Pulse oximetry 98 % 98 % eCW1 ([facility]) Heart rate 64 /min 64 /min eCW1 ([facility]) Body height 66 [in_i] 66 [in_i] eCW1 ([facility]) Heart rate 72 /min 72 /min eCW1 ([facility]) Respiratory rate 16 /min 16 /min eCW1 ([facility]) Oxygen saturation in Arterial blood by Pulse oximetry 98 % 98 % eCW1 ([facility]) Body height 66 [in_i] 66 [in_i] eCW1 ([facility]) Heart rate 77 /min 77 /min eCW1 ([facility]) Respiratory rate 16 /min 16 /min eCW1 ([facility]) Oxygen saturation in Arterial blood by Pulse oximetry 96 % 96 % eCW1 ([facility]) Body height 66 [in_i] 66 [in_i] eCW1 ([facility]) Heart rate 78 /min 78 /min eCW1 ([facility]) Respiratory rate 16 /min 16 /min eCW1 ([facility]) Oxygen saturation in Arterial blood by Pulse oximetry 98 % 98 % eCW1 ([facility]) Respiratory rate 16 /min 16 /min eCW1 ([facility]) Heart rate 68 /min 68 /min eCW1 ([facility]) Body height 66 [in_i] 66 [in_i] eCW1 ([facility]) Oxygen saturation in Arterial blood by Pulse oximetry 98 % 98 % eCW1 ([facility]) Body height 66 [in_i] 66 [in_i] eCW1 ([facility]) Heart rate 82 /min 82 /min eCW1 ([facility]) Respiratory rate 16 /min 16 /min eCW1 ([facility]) Oxygen saturation in Arterial blood by Pulse oximetry 99 % 99 % eCW1 ([facility]) Body height 66 [in_i] 66 [in_i] eCW1 ([facility]) Heart rate 76 /min 76 /min eCW1 ([facility]) Respiratory rate 16 /min 16 /min eCW1 ([facility]) Oxygen saturation in Arterial blood by Pulse oximetry 99 % 99 % eCW1 ([facility]) Body height 66 [in_i] 66 [in_i] eCW1 ([facility]) Heart rate 79 /min 79 /min eCW1 ([facility]) Respiratory rate 16 /min 16 /min eCW1 ([facility]) Oxygen saturation in Arterial blood by Pulse oximetry 98 % 98 % eCW1 ([facility]) Body height 66 [in_i] 66 [in_i] eCW1 ([facility]) Oxygen saturation in Arterial blood by Pulse oximetry 98 % 98 % eCW1 ([facility]) Heart rate 76 /min 76 /min eCW1 ([facility]) Respiratory rate 16 /min 16 /min eCW1 ([facility]) Patient Treatment Plan of Care Planned Activity Planned Date Details Description Data Source (s) Amoxicillin 500 MG Oral Capsule 11/24/2020 12:00:00 AM EDT eCW1 ([facility]) Amoxicillin 500 MG Oral Capsule 11/24/2020 12:00:00 AM EDT eCW1 ([facility]) Amoxicillin 500 MG Oral Capsule 11/24/2020 12:00:00 AM EDT eCW1 ([facility]) Amoxicillin 500 MG Oral Capsule 11/24/2020 12:00:00 AM EDT eCW1 ([facility]) Amoxicillin 500 MG Oral Capsule 11/24/2020 12:00:00 AM EDT eCW1 ([facility]) Amoxicillin 500 MG Oral Capsule 11/24/2020 12:00:00 AM EDT eCW1 ([facility]) Amoxicillin 500 MG Oral Capsule 10/04/2020 12:00:00 AM EST eCW1 ([facility]) Amoxicillin 500 MG Oral Capsule 10/04/2020 12:00:00 AM EST eCW1 ([facility]) Amoxicillin 500 MG Oral Capsule 10/04/2020 12:00:00 AM EST eCW1 ([facility])
--- OUTSIDE RECORDS SUMMARY | 2021-07-04 21:19 | CCD ---
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 If you continue you may have access to information: Regarding HIV / AIDS; Provided by facilities licensed or operated by the [facility] Office of Mental Health; or Provided by the [facility] Office for People With Developmental Disabilities. If such information is present, then the following [facility] mandated warning applies: This information has been [...] law may result in a fine or [place] health [place] sentence or both. A general authorization for [...] ALEJANDRO MD 04/11/2021 01:19: 00 PM EDT [facility] Outpatient [facility] 04/11/2021 12:00:00 AM EDT eCW1 ([facility]) Outpatient Attender: CLAUDE ALEJANDRO MD 03/21/2021 01:22: 00 PM EDT [facility] 03/21/2021 12:00:00 AM EDT eCW1 ([facility]) Outpatient [facility] 03/10/2021 12:00:00 AM EDT eCW1 ([facility]) Outpatient Attender: CLAUDE ALEJANDRO MD 02/14/2021 01:47: 00 PM EDT [facility] 02/14/2021 12:00:00 AM EDT eCW1 ([facility]) Outpatient [facility] 02/07/2021 12:00:00 AM EDT eCW1 ([facility]) Outpatient [facility] 02/07/2021 12:00:00 AM EDT eCW1 ([facility]) Outpatient Attender: CLAUDE ALEJANDRO MD 01/17/2021 02:16: 00 PM EDT [facility] 01/17/2021 12:00:00 AM EDT eCW1 ([facility]) Outpatient [facility] 01/09/2021 12:00:00 AM EDT eCW1 ([facility]) Outpatient Attender: CLAUDE ALEJANDRO MD 01/03/2021 01:57: 00 PM EDT [facility] (Phone Tele) Telehealth Phone Call [facility] 01/03/2021 12:00:00 AM EDT eCW1 ([facility]) Outpatient [facility] 01/03/2021 12:00:00 AM EDT eCW1 ([facility]) Outpatient Attender: CLAUDE ALEJANDRO MD 12/20/2020 02:05: 00 PM EDT [facility] Outpatient [facility] 12/20/2020 12:00:00 AM EDT eCW1 ([facility]) Outpatient [facility] 12/20/2020 12:00:00 AM EDT eCW1 ([facility]) Outpatient Attender: CLAUDE ALEJANDRO MD 12/06/2020 01:45: 00 PM EDT [facility] Outpatient [facility] 12/06/2020 12:00:00 AM EDT eCW1 ([facility]) Outpatient [facility] 11/24/2020 12:00:00 AM EDT eCW1 ([facility]) Outpatient Attender: CLAUDE ALEJANDRO MD 11/22/2020 01:56: 00 PM EDT [facility] Outpatient [facility] 11/22/2020 12:00:00 AM EDT eCW1 ([facility]) Outpatient [facility] 11/09/2020 12:00:00 AM EDT eCW1 ([facility]) Outpatient [facility] 10/25/2020 12:00:00 AM EDT eCW1 ([facility]) Outpatient Attender: CLAUDE ALEJANDRO MD 10/04/2020 03:53: 00 PM EST [facility] Outpatient [facility] 10/04/2020 12:00:00 AM EST eCW1 ([facility]) Outpatient Attender: CLAUDE ALEJANDRO MD 06/21/2020 11:18: 00 AM EST [facility] Outpatient [facility] 06/21/2020 12:00:00 AM EST eCW1 ([facility]) Outpatient Attender: CLAUDE ALEJANDRO MD 05/24/2020 11:30: 00 AM EDT [facility] Outpatient [facility] 05/24/2020 12:00:00 AM EDT eCW1 ([facility]) Outpatient Attender: CLAUDE ALEJANDRO MD 05/10/2020 11:32: 00 AM EDT [facility] Outpatient [facility] 05/10/2020 12:00:00 AM EDT eCW1 ([facility]) Outpatient Attender: CLAUDE ALEJANDRO MD 04/19/2020 03:38: 00 PM EDT [facility] Outpatient Attender: CLAUDE ALEJANDRO MD 04/05/2020 01:00: 00 PM EDT [facility] Medications Medication Brand Name Start Date Product [...] EDT active Aquacel Foam 4"x4" - eCW1 ([facility]) Aquacel Foam 4"x4" - Aquacel Foam 4"x4" - 12/13/2020 12:00:00 AM EDT active Aquacel Foam 4"x4" - eCW1 ([facility]) Aquacel Foam 4"x4" - Aquacel Foam 4"x4" - 12/13/2020 12:00:00 AM EDT active Aquacel Foam 4"x4" - eCW1 ([facility]) Aquacel Foam 4"x4" - Aquacel Foam 4"x4" - 12/13/2020 12:00:00 AM EDT active Aquacel Foam 4"x4" - eCW1 ([facility]) Aquacel Foam 4"x4" - Aquacel Foam 4"x4" - 12/13/2020 12:00:00 AM EDT active Aquacel Foam 4"x4" - eCW1 ([facility]) Aquacel Foam 4"x4" - Aquacel Foam 4"x4" - 12/13/2020 12:00:00 AM EDT active Aquacel Foam 4"x4" - eCW1 ([facility]) Aquacel Foam 4"x4" - Aquacel Foam 4"x4" - 12/13/2020 12:00:00 AM EDT active Aquacel Foam 4"x4" - eCW1 ([facility]) Aquacel Foam 4"x4" - Aquacel Foam 4"x4" - 12/13/2020 12:00:00 AM EDT active Aquacel Foam 4"x4" - eCW1 ([facility]) Aquacel Foam 4"x4" - Aquacel Foam 4"x4" - 12/13/2020 12:00:00 AM EDT active Aquacel Foam 4"x4" - eCW1 ([facility]) Aquacel Foam 4"x4" - Aquacel Foam 4"x4" - 12/13/2020 12:00:00 AM EDT active Aquacel Foam 4"x4" - eCW1 ([facility]) Aquacel Foam 4"x4" - Aquacel Foam 4"x4" - 12/13/2020 12:00:00 AM EDT active Aquacel Foam 4"x4" - eCW1 ([facility]) Aquacel Foam 4"x4" - Aquacel Foam 4"x4" - 12/13/2020 12:00:00 AM EDT active Aquacel Foam 4"x4" - eCW1 ([facility]) Amoxicillin 500 MG Oral Capsule Amoxicillin 500 MG 11/24/2020 12:00 :00 AM EDT 1.0 {capsule} active Amoxicillin 500 MG eCW1 ([facility]) Amoxicillin 500 MG Oral Capsule Amoxicillin 500 MG 11/24/2020 12:00 :00 AM EDT 1.0 {capsule} active Amoxicillin 500 MG eCW1 ([facility]) Amoxicillin 500 MG Oral Capsule Amoxicillin 500 MG 11/24/2020 12:00 :00 AM EDT 1.0 {capsule} active Amoxicillin 500 MG eCW1 ([facility]) Amoxicillin 500 MG Oral Capsule Amoxicillin 500 MG 11/24/2020 12:00 :00 AM EDT 1.0 {capsule} active Amoxicillin 500 MG eCW1 ([facility]) Amoxicillin 500 MG Oral Capsule Amoxicillin 500 MG 11/24/2020 12:00 :00 AM EDT 1.0 {capsule} active Amoxicillin 500 MG eCW1 ([facility]) Amoxicillin 500 MG Oral Capsule Amoxicillin 500 MG 11/24/2020 12:00 :00 AM EDT 1.0 {capsule} active Amoxicillin 500 MG eCW1 ([facility]) Amoxicillin 500 MG Oral Capsule Amoxicillin 500 MG 11/24/2020 12:00 :00 AM EDT 1.0 {capsule} active Amoxicillin 500 MG eCW1 ([facility]) Amoxicillin 500 MG Oral Capsule Amoxicillin 500 MG 11/24/2020 12:00 :00 AM EDT 1.0 {capsule} active Amoxicillin 500 MG eCW1 ([facility]) Amoxicillin 500 MG Oral Capsule Amoxicillin 500 MG 11/24/2020 12:00 :00 AM EDT 1.0 {capsule} active Amoxicillin 500 MG eCW1 ([facility]) Amoxicillin 500 MG Oral Capsule Amoxicillin 500 MG 11/24/2020 12:00 :00 AM EDT 1.0 {capsule} active Amoxicillin 500 MG eCW1 ([facility]) Amoxicillin 500 MG Oral Capsule Amoxicillin 500 MG 11/24/2020 12:00 :00 AM EDT 1.0 {capsule} active Amoxicillin 500 MG eCW1 ([facility]) Amoxicillin 500 MG Oral Capsule Amoxicillin 500 MG 11/24/2020 12:00 :00 AM EDT 1.0 {capsule} active Amoxicillin 500 MG eCW1 ([facility]) Amoxicillin 500 MG Oral Capsule Amoxicillin 500 MG 11/24/2020 12:00 :00 AM EDT 1.0 {capsule} active Amoxicillin 500 MG eCW1 ([facility]) Amoxicillin 500 MG Oral Capsule Amoxicillin 500 MG 11/24/2020 12:00 :00 AM EDT 1.0 {capsule} active Amoxicillin 500 MG eCW1 ([facility]) 500 mg 10/04/2020 12:00:00 AM EST capsule [...] 1.0 {capsule} active Amoxicillin 500 MG eCW1 ([facility]) Amoxicillin 500 MG Oral Capsule Amoxicillin 500 MG 10/04/2020 12:00 :00 AM EST 1.0 {capsule} active Amoxicillin 500 MG eCW1 ([facility]) Amoxicillin 500 MG Oral Capsule Amoxicillin 500 MG 10/04/2020 12:00 :00 AM EST 1.0 {capsule} active Amoxicillin 500 MG eCW1 ([facility]) Amoxicillin 500 MG Oral Capsule Amoxicillin 500 MG 10/04/2020 12:00 :00 AM EST 1.0 {capsule} active Amoxicillin 500 MG eCW1 ([facility]) 500 mg 10/04/2020 12:00:00 AM EST capsule 30 TAKE ONE CAPSULE BY MOUTH EVERY 8 HOURS FOR 5 DAYS TAKE ONE CAPSULE BY MOUTH EVERY 8 HOURS FOR 5 DAYS NING [facility] Amoxicillin 500 MG Oral Capsule Amoxicillin 500 MG 10/04/2020 12:00 :00 AM EST 1.0 {capsule} active Amoxicillin 500 MG eCW1 ([facility]) Insurance Providers Payer name Policy type / Coverage type Policy ID Covered constitution party ID Covered constitution party's relationship to ivey Policy Ivey Plan Information MEDICARE A [id number] Self [id number] MEDICARE A [id number] Self [id number] [id number] Spouse [id number] OTHER B [id number] Self [id number] OTHER B [id number] Self [id number] OTHER B [id number] Self [id number] SELF PAY UNAVAILABLE S UNAVAILA BLE OPTUM VA O [id number] S [id number] MEDICARE [id number] SP [id number] 'S ADMINISTRATION [id number] SP [id number] MEDICARE C [id number] S [id number] [facility]/136E O [id number] S [id number] WEST O [id number] S [id number] WPS [facility]-VAPCCC [facility] [id number] SP [id number] MEDICARE [id number] SP [id number] A [employer] FOR [place] O [id number] S [id number] MEDICARE C [id number] S [id number] A Medicare Natl Gov't Servi Medicare Primary [id number] Self [id number] Medicare Natl Gov't Servi Medicare Primary [id number] Self [id number] [place] [id number] [place]2 [id number] [place] [facility] P [id number] S [id number] [facility]/136E [id number] SP [id number] POM[employer] O [id number] U [id number] [employer] PPO 2 [id number] 2 [id number] SELF PAY 2 UNAVAILABLE 1 UNAVAILA BLE [facility] [id number] [employer] PPO P [id number] P [id number] OPTUM VA CCN [id number] SP [id number] [employer] P [id number] P [id number] [place] CCN OPTUM [id number] S [id number] [employer] [id number] S [id number] MEDICARE [place] [id number] S [id number] [employer] [id number] S [id number] [place]IC[place] [id number] S [id number] Problems, Conditions, and Diagnoses Code Display Name Description Problem Type Effective Dates Data Source(s) Z98.890 OTHER SPECIFIED POSTPROCEDURAL STATES OT HER SPECIFIED POSTPROCEDURAL STATES Diagnosis 04/11/2021 01:19:00 PM [facility] 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 Diagnosis 03/21/2021 01:22:00 PM [facility] I73.9 Peripheral vascular disease, unspecified PERIPHERAL VASCULAR DISEASE, UNSPECIFIED Diagnosis 03/21/2021 01:22:00 PM [facility] F17.210 Nicotine dependence, cigarettes, uncompl icated NICOTINE DEPENDENCE, CIGARETTES, UNCOMPLICATED Diagnosis 02/14/2021 01:47:00 PM [facility] I70.233 Atherosclerosis of [place] ar teries of right leg with ulceration of ankle ATHSCL [place] ARTERIES OF RIGHT LEG W ULCERATION OF ANKLE Di agnosis 02/14/2021 01:47:00 PM [facility] 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 NON- PRS CHRONIC ULCER OF RIGHT ANKLE W NECROSIS OF Diagnosis 021 02:16:00 PM [facility] I70.201 Unspecified atherosclerosis of [place] arteries of extremities, right leg UNSP ATHSCL [place] ARTERIES OF EXTREMITIES, RIGHT LEG Diagno sis 01/17/2021 02:16:00 PM [facility] L97.312 Non-pressure chronic ulcer of right ankl e with fat layer exposed NON-PRS CHRONIC ULCER OF RIGHT ANKLE W FAT LAYER E Diagnosis 12/06/2020 01:45: 00 PM [facility] Z48.02 Encounter for removal of sutures ENCOUNTER FOR R EMOVAL OF SUTURES Diagnosis 12/06/2020 01:45:00 PM [facility] T87.44 Infection of amputation stump, left lowe r extremity INFECTION OF AMPUTATION STUMP, LEFT LOWER EXTREMITY Diagnosis 11/22/2020 01:56:00 P M [facility] L97.926 Non-pressure chronic ulcer o f unspecified part of left lower leg with bone involvement without evidence of necrosis NON-PRS CHR ULC UNSP PRT L LW LEG W BNE INVL W/O EVD OF NECR Diagnosis 10/04/2020 03:53:00 PM [facility] 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, left lower leg, subsequent encounter COMPLETE TRAUM AMP AT LEV BETW KN AND AN KL, L LOW Diagnosis 06/21/2020 11:18:00 AM [facility] l T14.8XXD OTHER INJURY OF UNSPECIFIED BODY REGION, SUBS OTHER INJURY OF UNSPECIFIED BODY REGION, SUBS Diagnosis 06/21/2020 11:18:00 AM [facility] Z89.512 Acquired absence of left leg below knee ACQUIRED ABSENCE OF LEFT LEG BELOW KNEE Diagnosis 06/21/2020 11:18:00 AM [facility] l T14.8XXA OTHER INJURY OF UNSPECIFIED BODY REGION, INITIAL E OTHER INJURY OF UNSPECIFIED BODY REGION, INITIAL E Diagnosis 05/10/2020 11:32:00 AM ED T [facility] Z89.611 [id number] History of right above knee amputation Problem 04/11/2021 12:00:00 AM EDT eCW1 ([facility]) I73.9 [id number] Peripheral arterial disease Problem 01/04/20 12:00:00 AM EDT eCW1 ([facility]) L97.909 [id number] Non-pressure chronic ulcer of unspecified part of unspecified lower leg with unspecified severity Problem 06/21/2020 12:00:[address] eCW1 ([facility]) I73.9 [id number] PAD (peripheral artery disease) Problem 05/10/2020 12:00:00 AM EDT eCW1 ([facility]) T14.8XXA [id number] Wound, open with complication Problem 05/10/2020 12:00:00 AM EDT eCW1 ([facility]) Surgeries/Procedures No Information Results ID Date Data Source [id number] 03/06/2021 12:00:00 AM EDT [facility] Name Value Range Interpretation Code Description Data Candida rce(s) Supporting Document(s) SARS-CoV-2 (COVID-19) RNA [Presence] in Respiratory specimen by TONY with probe detection Negative [facility] This lab was ordered by [facility] and reported by [facility]. ID Date Data Source [id number] 01/05/2021 12:00:00 AM EDT [facility] Name Value Range Interpretation Code Description Data Candida rce(s) Supporting Document(s) SARS-CoV-2 (COVID-19) RNA [Presence] in Respiratory specimen by TONY with probe detection Negative [facility] This lab was ordered by [facility] and reported by [facility]. Procedure Social History Code Duration Value Status Description Data Source(s ) Smoking 04/11/2021 12:00:00 AM EDT Current Smoker completed Curre nt Smoker eCW1 ([facility]) Smoking 03/21/2021 12:00:00 AM EDT Current Smoker completed Curre nt Smoker eCW1 ([facility]) Smoking 02/14/2021 12:00:00 AM EDT Current Smoker completed Curre nt Smoker eCW1 ([facility]) Smoking 02/14/2021 12:00:00 AM EDT Current Smoker completed Curre nt Smoker eCW1 ([facility]) Smoking 01/17/2021 12:00:00 AM EDT Current Smoker completed Curre nt Smoker eCW1 ([facility]) Smoking 01/17/2021 12:00:00 AM EDT Current Smoker completed Curre nt Smoker eCW1 ([facility]) Smoking 01/17/2021 12:00:00 AM EDT Current Smoker completed Curre nt Smoker eCW1 ([facility]) Smoking 01/03/2021 12:00:00 AM EDT Current Smoker completed Curre nt Smoker eCW1 ([facility]) Smoking 01/03/2021 12:00:00 AM EDT Current Smoker completed Curre nt Smoker eCW1 ([facility]) Smoking 01/03/2021 12:00:00 AM EDT Current Smoker completed Curre nt Smoker eCW1 ([facility]) Smoking 12/20/2020 12:00:00 AM EDT Current Smoker completed Curre nt Smoker eCW1 ([facility]) Smoking 12/20/2020 12:00:00 AM EDT Current Smoker completed Curre nt Smoker eCW1 ([facility]) Smoking 12/06/2020 12:00:00 AM EDT Current Smoker completed Curre nt Smoker eCW1 ([facility]) Smoking 11/22/2020 12:00:00 AM EDT Current Smoker completed Curre nt Smoker eCW1 ([facility]) Smoking 11/22/2020 12:00:00 AM EDT Current Smoker completed Curre nt Smoker eCW1 ([facility]) Smoking 10/04/2020 12:00:00 AM EST Current Smoker completed Curre nt Smoker eCW1 ([facility]) Smoking 10/04/2020 12:00:00 AM EST Current Smoker completed Curre nt Smoker eCW1 ([facility]) Smoking 10/04/2020 12:00:00 AM EST Current Smoker completed Curre nt Smoker eCW1 ([facility]) Smoking 06/21/2020 12:00:00 AM EST Current Smoker completed Curre nt Smoker eCW1 ([facility]) Smoking 05/24/2020 12:00:00 AM EDT Current Smoker completed Curre nt Smoker eCW1 ([facility]) Smoking 05/10/2020 12:00:00 AM EDT Current Smoker completed Curre nt Smoker eCW1 ([facility]) Vital Signs ID Date Data Source UNK Name Value Range Interpretation Code Description Data Source(s) Heart rate 64 /min 64 /min eCW1 ([facility]) Body height 66 [in_i] 66 [in_i] eCW1 ([facility]) Respiratory rate 16 /min 16 /min eCW1 ([facility]) Oxygen saturation in Arterial blood by Pulse oximetry 98 % 98 % eCW1 ([facility]) Body height 66 [in_i] 66 [in_i] eCW1 ([facility]) Heart rate 74 /min 74 /min eCW1 ([facility]) Respiratory rate 16 /min 16 /min eCW1 ([facility]) Oxygen saturation in Arterial blood by Pulse oximetry 98 % 98 % eCW1 ([facility]) Body height 66 [in_i] 66 [in_i] eCW1 ([facility]) Respiratory rate 16 /min 16 /min eCW1 ([facility]) Heart rate 64 /min 64 /min eCW1 ([facility]) Oxygen saturation in Arterial blood by Pulse oximetry 98 % 98 % eCW1 ([facility]) Body height 66 [in_i] 66 [in_i] eCW1 ([facility]) Heart rate 72 /min 72 /min eCW1 ([facility]) Respiratory rate 16 /min 16 /min eCW1 ([facility]) Oxygen saturation in Arterial blood by Pulse oximetry 98 % 98 % eCW1 ([facility]) Body height 66 [in_i] 66 [in_i] eCW1 ([facility]) Heart rate 77 /min 77 /min eCW1 ([facility]) Respiratory rate 16 /min 16 /min eCW1 ([facility]) Oxygen saturation in Arterial blood by Pulse oximetry 96 % 96 % eCW1 ([facility]) Body height 66 [in_i] 66 [in_i] eCW1 ([facility]) Heart rate 78 /min 78 /min eCW1 ([facility]) Respiratory rate 16 /min 16 /min eCW1 ([facility]) Oxygen saturation in Arterial blood by Pulse oximetry 98 % 98 % eCW1 ([facility]) Body height 66 [in_i] 66 [in_i] eCW1 ([facility]) Heart rate 68 /min 68 /min eCW1 ([facility]) Oxygen saturation in Arterial blood by Pulse oximetry 98 % 98 % eCW1 ([facility]) Respiratory rate 16 /min 16 /min eCW1 ([facility]) Body height 66 [in_i] 66 [in_i] eCW1 ([facility]) Heart rate 82 /min 82 /min eCW1 ([facility]) Respiratory rate 16 /min 16 /min eCW1 ([facility]) Oxygen saturation in Arterial blood by Pulse oximetry 99 % 99 % eCW1 ([facility]) Body height 66 [in_i] 66 [in_i] eCW1 ([facility]) Heart rate 76 /min 76 /min eCW1 ([facility]) Respiratory rate 16 /min 16 /min eCW1 ([facility]) Oxygen saturation in Arterial blood by Pulse oximetry 99 % 99 % eCW1 ([facility]) Body height 66 [in_i] 66 [in_i] eCW1 ([facility]) Heart rate 79 /min 79 /min eCW1 ([facility]) Respiratory rate 16 /min 16 /min eCW1 ([facility]) Oxygen saturation in Arterial blood by Pulse oximetry 98 % 98 % eCW1 ([facility]) Body height 66 [in_i] 66 [in_i] eCW1 ([facility]) Oxygen saturation in Arterial blood by Pulse oximetry 98 % 98 % eCW1 ([facility]) Heart rate 76 /min 76 /min eCW1 ([facility]) Respiratory rate 16 /min 16 /min eCW1 ([facility]) Patient Treatment Plan of Care Planned Activity Planned Date Details Description Data Source (s) Amoxicillin 500 MG Oral Capsule 11/24/2020 12:00:00 AM EDT eCW1 ([facility]) Amoxicillin 500 MG Oral Capsule 11/24/2020 12:00:00 AM EDT eCW1 ([facility]) Amoxicillin 500 MG Oral Capsule 11/24/2020 12:00:00 AM EDT eCW1 ([facility]) Amoxicillin 500 MG Oral Capsule 11/24/2020 12:00:00 AM EDT eCW1 ([facility]) Amoxicillin 500 MG Oral Capsule 11/24/2020 12:00:00 AM EDT eCW1 ([facility]) Amoxicillin 500 MG Oral Capsule 11/24/2020 12:00:00 AM EDT eCW1 ([facility]) Amoxicillin 500 MG Oral Capsule 10/04/2020 12:00:00 AM EST eCW1 ([facility]) Amoxicillin 500 MG Oral Capsule 10/04/2020 12:00:00 AM EST eCW1 ([facility]) Amoxicillin 500 MG Oral Capsule 10/04/2020 12:00:00 AM EST eCW1 ([facility])
--- NOTE | 2021-07-05 13:41 | ECGEPIP ---
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
== END 2021-07-05 03:45 | disposition left against medical advice (07) ==
LOC: M ED 12:35
DX: Z53.29 Procedure and treatment not carried out because of patient's decision for other reasons (principal)

== ENCOUNTER → 2022-04-27 | Outpatient (RCR) | payer OTHER ==
[~2022-04-27] MED LIST changes: +ALBU2.5V10 INH; +ALBU6.7H6 INH; -ALBU83IN INH; +FLUO-215 TOP; -FLUO5OI TOP; -PROV108A INH
== END ==
LOC: M PT 03-29 09:10
PROVIDERS: ATTEND Physical Medicine & Rehabilitation
DX: Z89.611 Acquired absence of right leg above knee (principal)

== ENCOUNTER → 2022-05-28 | Outpatient (RCR) | payer OTHER | LOC: M PT 05-03 10:00 | PROVIDERS: ATTEND Physical Medicine & Rehabilitation | DX: Z89.611 Acquired absence of right leg above knee (principal) ==

== ENCOUNTER 2022-12-28 05:29 | Inpatient (IN) | payer MEDICARE, OTHER ==
[~2022-12-28] VITALS: Ht 121.9 cm; Wt 68.0 kg
[~2022-12-28 05:29] MED LIST changes: -FLUO-215 TOP; +FLUO5OI TOP
[2022-12-28] MEDS ORDERED: IPRATROPIUM 0.5MG/ALBUTEROL 2.5MG INH SOL UD 3ML (DUONEB) NEB ONE ×2 (05:40)
[2022-12-28 06:36] LABS: BASO # 0.2 10^3/uL (0.0-0.2); BASO % 1.5 % (0.0-1.0); EOS # 0.7 10^3/uL (0.0-0.5); EOS % 6.3 % (0.0-3.0); HEMATOCRIT 43.8 % (42.0-52.0); HEMOGLOBIN 14.1 g/dl (13.5-17.5); LYMPH # 2.2 10^3/uL (1.5-5.0); LYMPH % 19.2 % (24.0-44.0); MEAN CORPUSCULAR HEMOGLOBIN 31.2 pg (27.0-33.0); MEAN CORPUSCULAR HGB CONC 32.2 g/dl (32.0-36.5); MEAN CORPUSCULAR VOLUME 96.9 fl (80.0-96.0); MONO # 0.9 10^3/uL (0.0-0.8); MONO % 7.3 % (2.0-8.0); NEUTROPHILS # 7.6 10^3/uL (1.5-8.5); NEUTROPHILS % 65.2 % (36.0-66.0); PLATELET COUNT, AUTOMATED 243 10^3/uL (150-450); RED BLOOD COUNT 4.52 10^6/uL (4.30-6.10); WHITE BLOOD COUNT 11.6 10^3/uL (4.0-10.0)
[2022-12-28 06:56] LABS: BLOOD UREA NITROGEN 20 MG/DL (9-23); CALCIUM LEVEL 9.3 MG/DL (8.3-10.6); CARBON DIOXIDE LEVEL 30 MMOL/L (20-31); CHLORIDE LEVEL 101 MMOL/L (98-107); CK-MB VALUE MASS 1.7 NG/ML (<3.6); CREATININE FOR GFR 0.85 MG/DL (0.70-1.30); GLOMERULAR FILTRATION RATE > 60.0 (>42); GLUCOSE, FASTING 238 MG/DL (74-106); MAGNESIUM LEVEL 2.1 MG/DL (1.8-2.4); POTASSIUM SERUM 4.2 MMOL/L (3.5-5.1); SODIUM LEVEL 138 MMOL/L (136-145)
[2022-12-28 07:04] LABS: CPK CREATINE PHOSPHOKINASE 65 U/L (46-171); MB/CK RELATIVE INDEX 2.61 (< OR =4)
[2022-12-28] MEDS: AZITHROMYCIN 250MG TABLET PO SCH (09:29)
[2022-12-28] MEDS ORDERED: [UNRECOGNIZED DRUG - CODE] PO (09:33)
[2022-12-28] MEDS ORDERED: GLUCOSE 4GM CHEW TABLET PO PRN (09:35)
[2022-12-28] MEDS ORDERED: DEXTROSE 50% 50ML SYRINGE IV PRN (09:35)
[2022-12-28] MEDS ORDERED: GLUCAGON INJ 1MG VIAL SC PRN (09:35)
[2022-12-28] MEDS ORDERED: SPIR12.9 INH (09:39)
[2022-12-28] MEDS ORDERED: FLUT1BLS2 INH (09:39)
[2022-12-28] MEDS ORDERED: NARC1SPR NARES (09:39)
[2022-12-28] MEDS ORDERED: ROSU40TA4 PO (09:39)
[2022-12-28] MEDS ORDERED: FLON1SPR NARES (09:39)
[2022-12-28] MEDS ORDERED: AMLO1TAB25 PO (09:39)
[2022-12-28] MEDS ORDERED: [UNRECOGNIZED DRUG - CODE] NARES (09:39)
[2022-12-28] MEDS ORDERED: CARV12.5 PO (09:39)
[2022-12-28] MEDS ORDERED: COMBAER6 INH (09:39)
[2022-12-28] MEDS ORDERED: HOME MED LIST COMPLETE! XX SCH (09:40)
[2022-12-28 09:56] VITALS: BP 125/58
[2022-12-28] MEDS ORDERED: COMBIVENT RESPIMAT 100-20MCG INHALER 4GM INH PRN (10:30)
[2022-12-28] MEDS ORDERED: FLUTICASONE PROP 0.05% NASAL SPRAY 16 GM (FLONASE) NARES PRN (10:30)
[2022-12-28] MEDS ORDERED: ALBUTEROL 90 MCG/ACT 8GM HFA INHALER INH PRN (10:30)
[2022-12-28] MEDS: NORCO, ANEXSIA 5/325MG TABLET (HYDROcodone/ACETAMINOPHEN) PO PRN ×2 (11:00→19:38)
[2022-12-28] MEDS: ENOXAPARIN 40MG/0.4ML SYRINGE (J1650 PER 10MG) SC SCH (11:02)
[2022-12-28] MEDS: IPRATROPIUM 0.5MG/ALBUTEROL 2.5MG INH SOL UD 3ML (DUONEB) NEB SCH ×4 (11:06→23:55)
[2022-12-28] MEDS: methylPREDNISolone 40MG 1ML VIAL IV SCH ×3 (12:01→23:09)
[2022-12-28] MEDS: VALSARTAN 80 MG TAB (DIOVAN) PO SCH ×2 (12:01→20:34)
[2022-12-28] MEDS: CARVedilol 6.25 MG TAB PO SCH ×2 (12:01→20:35)
[2022-12-28] MEDS: FUROSEMIDE 40 MG TAB PO SCH ×2 (12:01→16:52)
[2022-12-28] MEDS: INSULIN LISPRO (NovoLOG) PER UNIT SC SCH ×2 (12:02→16:53)
[2022-12-28 12:14] VITALS: BP 129/57
[2022-12-28] MEDS: OXYMETAZOLINE 0.05% NASAL SPRAY (AFRIN) SCH ×3 (13:00→20:36)
[2022-12-28] MEDS: GABAPENTIN 300 MG CAP PO PRN ×2 (14:53→23:09)
[2022-12-28 15:56] VITALS: BP 129/56
[2022-12-28] MEDS ORDERED: LEVEMIR (INSULIN DETEMIR) 1 UNITS/0.01ML SC ONE (17:05)
[2022-12-28 20:10] VITALS: BP 108/56
[2022-12-28] MEDS: ROSUVASTATIN 10 MG TAB (CRESTOR) PO SCH ×2 (20:36→20:40)
[2022-12-28] MEDS ORDERED: INSULIN LISPRO (NovoLOG) PER UNIT SC SCH (21:00)
[2022-12-28] MEDS ORDERED: OMEPRAZOLE 20MG CAP PO SCH (21:00)
[2022-12-29] VITALS: BP 115/54
[2022-12-29] MEDS: IPRATROPIUM 0.5MG/ALBUTEROL 2.5MG INH SOL UD 3ML (DUONEB) NEB SCH ×2 (02:21→07:58)
[2022-12-29 04:28] VITALS: BP 105/58
[2022-12-29] MEDS: NORCO, ANEXSIA 5/325MG TABLET (HYDROcodone/ACETAMINOPHEN) PO PRN (04:30)
[2022-12-29] MEDS: methylPREDNISolone 40MG 1ML VIAL IV SCH ×2 (05:31→11:04)
[2022-12-29 08:00] LABS: HEMATOCRIT 37.9 % (42.0-52.0); HEMOGLOBIN 12.8 g/dl (13.5-17.5); MEAN CORPUSCULAR HEMOGLOBIN 32.1 pg (27.0-33.0); MEAN CORPUSCULAR HGB CONC 33.8 g/dl (32.0-36.5); PLATELET COUNT, AUTOMATED 214 10^3/uL (150-450); RED BLOOD COUNT 3.99 10^6/uL (4.30-6.10)
[2022-12-29 08:17] VITALS: BP 121/60
[2022-12-29 08:35] LABS: BLOOD UREA NITROGEN 32 MG/DL (9-23); CALCIUM LEVEL 9.3 MG/DL (8.3-10.6); CARBON DIOXIDE LEVEL 25 MMOL/L (20-31); CHLORIDE LEVEL 98 MMOL/L (98-107); CREATININE FOR GFR 0.87 MG/DL (0.70-1.30); GLOMERULAR FILTRATION RATE > 60.0 (>42); GLUCOSE, FASTING 270 MG/DL (74-106); POTASSIUM SERUM 4.4 MMOL/L (3.5-5.1); SODIUM LEVEL 132 MMOL/L (136-145)
[2022-12-29] MEDS ORDERED: PRED50TA PO (08:36)
[2022-12-29] MEDS ORDERED: AZIT-12 PO ×2 (08:36→09:46)
[2022-12-29] MEDS: ENOXAPARIN 40MG/0.4ML SYRINGE (J1650 PER 10MG) SC SCH (09:06)
[2022-12-29] MEDS: GABAPENTIN 300 MG CAP PO PRN (09:07)
[2022-12-29] MEDS: INSULIN LISPRO (NovoLOG) PER UNIT SC SCH (09:07)
[2022-12-29] MEDS: VALSARTAN 80 MG TAB (DIOVAN) PO SCH (09:07)
[2022-12-29] MEDS: FUROSEMIDE 40 MG TAB PO SCH (09:07)
[2022-12-29 09:08] VITALS: BP 121/60
[2022-12-29] MEDS: AZITHROMYCIN 250MG TABLET PO SCH (09:08)
[2022-12-29] MEDS: CARVedilol 6.25 MG TAB PO SCH (09:08)
== END 2022-12-29 11:36 | disposition home or self-care (01) | DRG 191 ==
LOC: M ED 05:29 → M ED INP 08:35 → ENRESERV 09:00 → M PCU 09:39
PROVIDERS: ADMIT Internal Medicine; ATTEND Student in an Organized Health Care Education/Training Program
DX: J44.1 Chronic obstructive pulmonary disease with (acute) exacerbation (principal); I50.22 Chronic systolic (congestive) heart failure; I11.0 Hypertensive heart disease with heart failure; E11.9 Type 2 diabetes mellitus without complications; F17.210 Nicotine dependence, cigarettes, uncomplicated; E78.5 Hyperlipidemia, unspecified; G89.29 Other chronic pain; Z79.4 Long term (current) use of insulin; Z79.899 Other long term (current) drug therapy

== ENCOUNTER 2023-01-25 20:22 | Inpatient (IN) | payer OTHER ==
[~2023-01-25 20:22] MED LIST changes: +AZIT-12 PO; +CARV12.5 PO; +COMBAER6 INH; +FLON1SPR NARES; +FLUT1BLS2 INH; +NARC1SPR NARES; +ROSU40TA4 PO; +SPIR12.9 INH; +[UNRECOGNIZED DRUG - CODE] NARES; +[UNRECOGNIZED DRUG - CODE] PO
[2023-01-25 20:50] LABS: BASO # 0.2 10^3/uL (0.0-0.2); BASO % 1.9 % (0.0-1.0); EOS # 0.8 10^3/uL (0.0-0.5); EOS % 9.1 % (0.0-3.0); HEMATOCRIT 37.3 % (42.0-52.0); HEMOGLOBIN 12.4 g/dl (13.5-17.5); LYMPH # 1.7 10^3/uL (1.5-5.0); LYMPH % 18.9 % (24.0-44.0); MEAN CORPUSCULAR HEMOGLOBIN 31.8 pg (27.0-33.0); MEAN CORPUSCULAR HGB CONC 33.2 g/dl (32.0-36.5); MEAN CORPUSCULAR VOLUME 95.6 fl (80.0-96.0); MONO % 10.8 % (2.0-8.0); NEUTROPHILS # 5.3 10^3/uL (1.5-8.5); NEUTROPHILS % 59.1 % (36.0-66.0); PLATELET COUNT, AUTOMATED 238 10^3/uL (150-450)
[2023-01-25 21:07] LABS: CK-MB VALUE MASS 2.4 NG/ML (<3.6)
[2023-01-25 21:09] LABS: ALBUMIN 3.8 G/DL (3.2-5.2); ALKALINE PHOSPHATASE 80 U/L (46-116); ALT/SGPT < 9 U/L (7.0-40); AST/SGOT < 8 U/L (<34); BILIRUBIN,DIRECT 0.1 MG/DL (<0.4); BILIRUBIN,TOTAL 0.5 MG/DL (0.3-1.2); BLOOD UREA NITROGEN 17 MG/DL (9-23); CALCIUM LEVEL 8.7 MG/DL (8.3-10.6); CARBON DIOXIDE LEVEL 34 MMOL/L (20-31); CHLORIDE LEVEL 101 MMOL/L (98-107); CPK CREATINE PHOSPHOKINASE 51 U/L (46-171); CREATININE FOR GFR 0.88 MG/DL (0.70-1.30); GLOMERULAR FILTRATION RATE > 60.0 (>42); GLUCOSE, FASTING 167 MG/DL (74-106); POTASSIUM SERUM 4.1 MMOL/L (3.5-5.1); SODIUM LEVEL 138 MMOL/L (136-145); TOTAL PROTEIN 6.7 G/DL (5.7-8.2)
[2023-01-25] MEDS ORDERED: ISOVUE-370 76% 100ML VIAL As Ordered ONE (21:59)
[2023-01-25] MEDS ORDERED: IPRATROPIUM 0.5MG/ALBUTEROL 2.5MG INH SOL UD 3ML (DUONEB) NEB ONE ×2 (22:00)
[2023-01-25] MEDS: POTASSIUM CHLORIDE 10MEQ SR TABLET PO ONE ×2 (23:00→23:43)
[2023-01-25] MEDS: KCL 10MEQ/100ML SWI (KRUN) 10 MEQ in IV 1 EA IV ONE ×2 (23:20→23:43)
[2023-01-25] MEDS ORDERED: MAG SULF 1GM/100ML (MAG RUN) 1 GM in IV 1 EA IV ONE (23:20)
[2023-01-26] VITALS (7 sets, daily range): BP systolic 99–141; BP diastolic 53–60; TEMP 97.3–98.3; O2SAT 84–99
[2023-01-26] MEDS ORDERED: DEXTROSE 50% 50ML SYRINGE IV PRN (00:40)
[2023-01-26] MEDS ORDERED: ACETAMINOPHEN TAB 650MG DOSE (2X325MG) PO PRN (00:40)
[2023-01-26] MEDS ORDERED: GLUCAGON INJ 1MG VIAL SC PRN (00:40)
[2023-01-26] MEDS ORDERED: GLUCOSE 4GM CHEW TABLET PO PRN (00:40)
[2023-01-26] MEDS: methylPREDNISolone 40MG 1ML VIAL IV SCH ×3 (01:15→18:19)
[2023-01-26] MEDS ORDERED: FLUT1BLS3 INH (01:40)
[2023-01-26] MEDS ORDERED: FURO40TA2 PO (01:40)
[2023-01-26] MEDS ORDERED: HOME MED LIST COMPLETE! XX SCH (01:45)
[2023-01-26] MEDS ORDERED: FLUTICASONE PROP 0.05% NASAL SPRAY 16 GM (FLONASE) NARES PRN (02:20)
[2023-01-26] MEDS: IPRATROPIUM 0.5MG/ALBUTEROL 2.5MG INH SOL UD 3ML (DUONEB) NEB SCH ×4 (03:03→19:56)
[2023-01-26 06:11] LABS: HEMATOCRIT 37.6 % (42.0-52.0); HEMOGLOBIN 12.3 g/dl (13.5-17.5)
[2023-01-26 06:24] LABS: BLOOD UREA NITROGEN 22 MG/DL (9-23); CALCIUM LEVEL 9.3 MG/DL (8.3-10.6); CARBON DIOXIDE LEVEL 28 MMOL/L (20-31); CHLORIDE LEVEL 97 MMOL/L (98-107); CREATININE FOR GFR 0.83 MG/DL (0.70-1.30); GLOMERULAR FILTRATION RATE > 60.0 (>42); GLUCOSE, FASTING 343 MG/DL (74-106); POTASSIUM SERUM 4.3 MMOL/L (3.5-5.1); SODIUM LEVEL 133 MMOL/L (136-145)
[2023-01-26] MEDS: HEPARIN SOD (PORCINE) 5000UNITS/ML 1ML VIAL/SYRINGE SC SCH ×3 (06:30→21:25)
[2023-01-26] MEDS: TIOTROPIUM INHALER/CAPSULE (SPIRIVA) INH SCH (07:17)
[2023-01-26 07:49] LABS: HEMOGLOBIN A1c 7.2 % (4.0-6.0)
[2023-01-26] MEDS: NICOTINE 14 MG/24 HR TRANSDERMAL TD SCH (08:19)
[2023-01-26] MEDS: ASPIRIN 81MG CHEW TABLET PO SCH (08:31)
[2023-01-26] MEDS: NORCO, ANEXSIA 5/325MG TABLET (HYDROcodone/ACETAMINOPHEN) PO PRN ×3 (08:32→21:25)
[2023-01-26] MEDS: GABAPENTIN 300 MG CAP PO PRN ×2 (08:32→20:30)
[2023-01-26] MEDS: FUROSEMIDE 80 MG TAB PO SCH (08:33)
[2023-01-26] MEDS: INSULIN LISPRO (NovoLOG) PER UNIT SC SCH ×4 (08:34→20:39)
[2023-01-26] MEDS: VALSARTAN 80 MG TAB (DIOVAN) PO SCH ×2 (08:37→20:25)
[2023-01-26] MEDS: CARVedilol 6.25 MG TAB PO SCH ×2 (08:37→20:31)
[2023-01-26] MEDS ORDERED: LEVEMIR (INSULIN DETEMIR) 1 UNITS/0.01ML SC SCH (09:00)
[2023-01-26] MEDS: ATORVASTATIN 20 MG TAB PO SCH (12:24)
[2023-01-26] MEDS: ALBUTEROL SULFATE 2.5MG/0.5ML INH NEB SOLN NEB PRN (14:49)
[2023-01-26] MEDS: FUROSEMIDE 40 MG TAB PO SCH (17:00)
[2023-01-26] MEDS: LEVEMIR (INSULIN DETEMIR) 1 UNITS/0.01ML SC SCH (20:37)
[2023-01-26] MEDS ORDERED: IBUPROFEN 400MG TAB PO PRN (22:00)
[2023-01-26] MEDS ORDERED: NORCO, ANEXSIA 5/325MG TABLET (HYDROcodone/ACETAMINOPHEN) PO ONE (22:00)
[2023-01-27] VITALS (22 sets, daily range): BP systolic 123–130; BP diastolic 55–83; TEMP 97.2–97.9; O2SAT 82–99
[2023-01-27] MEDS: methylPREDNISolone 40MG 1ML VIAL IV SCH ×3 (00:36→17:12)
[2023-01-27] MEDS: IPRATROPIUM 0.5MG/ALBUTEROL 2.5MG INH SOL UD 3ML (DUONEB) NEB SCH ×4 (01:06→19:25)
[2023-01-27] MEDS: HEPARIN SOD (PORCINE) 5000UNITS/ML 1ML VIAL/SYRINGE SC SCH ×3 (05:30→21:13)
[2023-01-27] MEDS: ALBUTEROL SULFATE 2.5MG/0.5ML INH NEB SOLN NEB PRN (05:45)
[2023-01-27 06:06] LABS: BASO % 0.1 % (0.0-1.0); HEMATOCRIT 36.7 % (42.0-52.0); HEMOGLOBIN 12.1 g/dl (13.5-17.5); LYMPH % 8.2 % (24.0-44.0); MEAN CORPUSCULAR HEMOGLOBIN 31.5 pg (27.0-33.0); MEAN CORPUSCULAR VOLUME 95.6 fl (80.0-96.0); MONO # 0.3 10^3/uL (0.0-0.8); MONO % 2.5 % (2.0-8.0); NEUTROPHILS # 10.7 10^3/uL (1.5-8.5); NEUTROPHILS % 88.7 % (36.0-66.0); PLATELET COUNT, AUTOMATED 218 10^3/uL (150-450); RED BLOOD COUNT 3.84 10^6/uL (4.30-6.10); WHITE BLOOD COUNT 12.1 10^3/uL (4.0-10.0)
[2023-01-27 06:23] LABS: BLOOD UREA NITROGEN 35 MG/DL (9-23); CARBON DIOXIDE LEVEL 24 MMOL/L (20-31); CHLORIDE LEVEL 96 MMOL/L (98-107); CREATININE FOR GFR 0.96 MG/DL (0.70-1.30); GLOMERULAR FILTRATION RATE > 60.0 (>42); GLUCOSE, FASTING 212 MG/DL (74-106); MAGNESIUM LEVEL 2.4 MG/DL (1.8-2.4); POTASSIUM SERUM 4.6 MMOL/L (3.5-5.1); SODIUM LEVEL 130 MMOL/L (136-145)
[2023-01-27] MEDS: TIOTROPIUM INHALER/CAPSULE (SPIRIVA) INH SCH (06:57)
[2023-01-27 07:29] LABS: CORTISOL BASELINE 9.8 UG/DL (4.3-22.4)
[2023-01-27 07:32] LABS: FREE T4 0.98 NG/DL (0.89-1.76); THYROID STIMULATING HORMONE 0.325 uIU/ML (0.55-4.78)
[2023-01-27 07:49] LABS: OSMOLALITY SERUM 280 MOSM/KG (280-301)
[2023-01-27] MEDS: NICOTINE 14 MG/24 HR TRANSDERMAL TD SCH (09:00)
[2023-01-27] MEDS: CARVedilol 6.25 MG TAB PO SCH ×2 (09:00→21:05)
[2023-01-27] MEDS: LEVEMIR (INSULIN DETEMIR) 1 UNITS/0.01ML SC SCH ×2 (09:03→21:04)
[2023-01-27] MEDS: ASPIRIN 81MG CHEW TABLET PO SCH (09:03)
[2023-01-27] MEDS: INSULIN LISPRO (NovoLOG) PER UNIT SC SCH ×4 (09:03→21:04)
[2023-01-27] MEDS: ATORVASTATIN 20 MG TAB PO SCH (09:03)
[2023-01-27 09:06] LABS: ABG BASE EXCESS 0.8 (-2.0-2.0); ABG HCO3 24.8 MMOL/L (22.0-26.0); ABG O2 SATURATION 89.7 % (95.0-99.0); ABG PARTIAL PRESSURE CO2 37.7 mmHg (35.0-45.0); ABG PARTIAL PRESSURE O2 56.1 mmHg (75.0-100.0); ABG pH (ARTERIAL) 7.436 UNITS (7.350-7.450)
[2023-01-27] MEDS ORDERED: ISOVUE-370 76% 100ML VIAL As Ordered ONE (09:39)
[2023-01-27] MEDS: ADVAIR HFA 230/21MCG INHALER INH SCH ×2 (09:57→19:26)
[2023-01-27] MEDS: NORCO, ANEXSIA 5/325MG TABLET (HYDROcodone/ACETAMINOPHEN) PO PRN ×2 (11:30→21:06)
[2023-01-27] MEDS: GABAPENTIN 300 MG CAP PO PRN ×2 (12:27→23:02)
[2023-01-27 12:34] LABS: APPEARANCE, URINE CLEAR (CLEAR); BACTERIA, URINE AUTO NEGATIVE (NEGATIVE); BILIRUBIN, URINE AUTO NEGATIVE (NEGATIVE); BLOOD, URINE BLOOD NEGATIVE (NEGATIVE); COLOR, URINE STRAW (YELLOW); GLUCOSE, URINE (UA) AUTO NEGATIVE (NEGATIVE); KETONE, URINE AUTO NEGATIVE (NEGATIVE); LEUKOCYTE ESTERASE, URINE AUTO NEGATIVE (NEGATIVE); NITRITE, URINE AUTO NEGATIVE (NEGATIVE); PROTEIN, URINE AUTO NEGATIVE (NEGATIVE); RBC, URINE AUTO 0 /HPF (0-3); SPECIFIC GRAVITY URINE AUTO 1.019 (1.002-1.035); SQUAMOUS EPITHELIAL CELL UR AU 0 /HPF (0-6); UROBILINOGEN, URINE AUTO 0.2 mg/dL (0.0-2.0); WBC, URINE AUTO 0 /HPF (0-3)
[2023-01-27 12:37] LABS: OSMOLALITY URINE 227 MOSM/KG (50-1400)
[2023-01-27 12:52] LABS: CREATININE,RANDOM URINE 28.9 MG/DL
[2023-01-27 12:54] LABS: CHLORIDE,RANDOM URINE 19.99999 MMOL/L; SODIUM,RANDOM URINE < 10 MMOL/L
[2023-01-27] MEDS ORDERED: SODIUM CHLORIDE NASAL 0.65% SPRAY BTL (OCEAN) PRN (15:50)
[2023-01-27] MEDS: guaiFENesin ER 600 MG TAB PO SCH (21:05)
[2023-01-28] VITALS (34 sets, daily range): BP systolic 120–133; BP diastolic 56–69; TEMP 97.3–98.6; O2SAT 83–100
[2023-01-28] MEDS: methylPREDNISolone 40MG 1ML VIAL IV SCH ×3 (01:10→17:19)
[2023-01-28] MEDS: IPRATROPIUM 0.5MG/ALBUTEROL 2.5MG INH SOL UD 3ML (DUONEB) NEB SCH ×4 (01:12→19:53)
[2023-01-28] MEDS: HEPARIN SOD (PORCINE) 5000UNITS/ML 1ML VIAL/SYRINGE SC SCH ×3 (06:15→21:18)
[2023-01-28 06:42] LABS: BASO % 0.1 % (0.0-1.0); HEMOGLOBIN 10.9 g/dl (13.5-17.5); LYMPH # 0.6 10^3/uL (1.5-5.0); LYMPH % 5.4 % (24.0-44.0); MEAN CORPUSCULAR HEMOGLOBIN 32.2 pg (27.0-33.0); MEAN CORPUSCULAR HGB CONC 34.1 g/dl (32.0-36.5); MEAN CORPUSCULAR VOLUME 94.4 fl (80.0-96.0); MONO # 0.3 10^3/uL (0.0-0.8); MONO % 2.8 % (2.0-8.0); NEUTROPHILS # 10.4 10^3/uL (1.5-8.5); NEUTROPHILS % 91.1 % (36.0-66.0); PLATELET COUNT, AUTOMATED 200 10^3/uL (150-450); RED BLOOD COUNT 3.39 10^6/uL (4.30-6.10); WHITE BLOOD COUNT 11.4 10^3/uL (4.0-10.0)
[2023-01-28 07:01] LABS: BLOOD UREA NITROGEN 36 MG/DL (9-23); CALCIUM LEVEL 8.5 MG/DL (8.3-10.6); CARBON DIOXIDE LEVEL 28 MMOL/L (20-31); CHLORIDE LEVEL 99 MMOL/L (98-107); CREATININE FOR GFR 0.83 MG/DL (0.70-1.30); GLOMERULAR FILTRATION RATE > 60.0 (>42); GLUCOSE, FASTING 145 MG/DL (74-106); MAGNESIUM LEVEL 2.6 MG/DL (1.8-2.4); POTASSIUM SERUM 4.1 MMOL/L (3.5-5.1); SODIUM LEVEL 133 MMOL/L (136-145)
[2023-01-28] MEDS: ADVAIR HFA 230/21MCG INHALER INH SCH ×2 (07:49→19:53)
[2023-01-28] MEDS: TIOTROPIUM INHALER/CAPSULE (SPIRIVA) INH SCH (07:49)
[2023-01-28] MEDS: INSULIN LISPRO (NovoLOG) PER UNIT SC SCH ×4 (08:41→21:00)
[2023-01-28] MEDS: NICOTINE 14 MG/24 HR TRANSDERMAL TD SCH (09:00)
[2023-01-28] MEDS: GABAPENTIN 300 MG CAP PO PRN ×2 (09:17→23:45)
[2023-01-28] MEDS: NORCO, ANEXSIA 5/325MG TABLET (HYDROcodone/ACETAMINOPHEN) PO PRN ×2 (09:19→23:46)
[2023-01-28] MEDS: LEVEMIR (INSULIN DETEMIR) 1 UNITS/0.01ML SC SCH ×2 (09:19→21:17)
[2023-01-28] MEDS: ASPIRIN 81MG CHEW TABLET PO SCH (09:21)
[2023-01-28] MEDS: CARVedilol 6.25 MG TAB PO SCH ×2 (09:21→21:18)
[2023-01-28] MEDS: ATORVASTATIN 20 MG TAB PO SCH (09:21)
[2023-01-28] MEDS: guaiFENesin ER 600 MG TAB PO SCH ×2 (09:21→21:18)
[2023-01-28] MEDS ORDERED: SENOKOT S TAB PO PRN (10:30)
[2023-01-28 11:56] LABS: HEMATOCRIT 31.9 % (42.0-52.0); HEMOGLOBIN 10.9 g/dl (13.5-17.5)
[2023-01-28] MEDS: PANTOPRAZOLE 40MG TAB (PROTONIX) PO SCH (12:51)
[2023-01-29] VITALS (38 sets, daily range): BP systolic 112–136; BP diastolic 54–66; TEMP 97.3–98.1; O2SAT 81–100
[2023-01-29] MEDS: methylPREDNISolone 40MG 1ML VIAL IV SCH ×3 (00:42→17:44)
[2023-01-29] MEDS: IPRATROPIUM 0.5MG/ALBUTEROL 2.5MG INH SOL UD 3ML (DUONEB) NEB SCH ×4 (01:18→19:38)
[2023-01-29] MEDS: HEPARIN SOD (PORCINE) 5000UNITS/ML 1ML VIAL/SYRINGE SC SCH ×3 (05:36→20:38)
[2023-01-29 06:53] LABS: BASO % 0.1 % (0.0-1.0); HEMATOCRIT 34.7 % (42.0-52.0); HEMOGLOBIN 11.6 g/dl (13.5-17.5); LYMPH # 0.6 10^3/uL (1.5-5.0); LYMPH % 5.8 % (24.0-44.0); MEAN CORPUSCULAR HEMOGLOBIN 31.4 pg (27.0-33.0); MEAN CORPUSCULAR HGB CONC 33.4 g/dl (32.0-36.5); MONO # 0.4 10^3/uL (0.0-0.8); MONO % 4.2 % (2.0-8.0); NEUTROPHILS # 8.6 10^3/uL (1.5-8.5); NEUTROPHILS % 89.2 % (36.0-66.0); PLATELET COUNT, AUTOMATED 182 10^3/uL (150-450); RED BLOOD COUNT 3.69 10^6/uL (4.30-6.10); WHITE BLOOD COUNT 9.6 10^3/uL (4.0-10.0)
[2023-01-29] MEDS: TIOTROPIUM INHALER/CAPSULE (SPIRIVA) INH SCH (07:16)
[2023-01-29] MEDS: ADVAIR HFA 230/21MCG INHALER INH SCH ×2 (07:17→19:39)
[2023-01-29 07:21] LABS: BLOOD UREA NITROGEN 29 MG/DL (9-23); CALCIUM LEVEL 9.2 MG/DL (8.3-10.6); CARBON DIOXIDE LEVEL 27 MMOL/L (20-31); CHLORIDE LEVEL 99 MMOL/L (98-107); CREATININE FOR GFR 0.82 MG/DL (0.70-1.30); GLOMERULAR FILTRATION RATE > 60.0 (>42); GLUCOSE, FASTING 110 MG/DL (74-106); MAGNESIUM LEVEL 2.9 MG/DL (1.8-2.4); POTASSIUM SERUM 4.1 MMOL/L (3.5-5.1); SODIUM LEVEL 131 MMOL/L (136-145)
[2023-01-29] MEDS: GABAPENTIN 300 MG CAP PO PRN ×3 (08:33→22:48)
[2023-01-29] MEDS: NORCO, ANEXSIA 5/325MG TABLET (HYDROcodone/ACETAMINOPHEN) PO PRN ×3 (08:33→22:48)
[2023-01-29] MEDS: LEVEMIR (INSULIN DETEMIR) 1 UNITS/0.01ML SC SCH ×2 (08:33→20:34)
[2023-01-29] MEDS: FUROSEMIDE 80 MG TAB PO SCH (08:34)
[2023-01-29] MEDS: CARVedilol 6.25 MG TAB PO SCH ×2 (08:34→20:33)
[2023-01-29] MEDS: PANTOPRAZOLE 40MG TAB (PROTONIX) PO SCH (08:34)
[2023-01-29] MEDS: ATORVASTATIN 20 MG TAB PO SCH (08:34)
[2023-01-29] MEDS: ASPIRIN 81MG CHEW TABLET PO SCH (08:34)
[2023-01-29] MEDS: INSULIN LISPRO (NovoLOG) PER UNIT SC SCH ×4 (08:34→20:34)
[2023-01-29] MEDS: NICOTINE 14 MG/24 HR TRANSDERMAL TD SCH (08:35)
[2023-01-29] MEDS: guaiFENesin ER 600 MG TAB PO SCH ×2 (08:35→20:32)
[2023-01-29] MEDS: DOXYCYCLINE HYCLATE 100MG TABLET PO SCH ×2 (11:03→20:32)
[2023-01-29] MEDS: cefTRIAXone SOD 1 GM in D5W MINI-BAG PLUS 50 ML IV SCH (11:04)
[2023-01-29 12:05] LABS: PROCALCITONIN <0.04 ng/ml
[2023-01-29] MEDS: FUROSEMIDE 40 MG TAB PO SCH (16:52)
[2023-01-30] VITALS (18 sets, daily range): BP systolic 129–131; BP diastolic 60–61; TEMP 97.3–98.3; O2SAT 84–97
[2023-01-30] MEDS: methylPREDNISolone 40MG 1ML VIAL IV SCH ×2 (00:34→09:44)
[2023-01-30] MEDS: IPRATROPIUM 0.5MG/ALBUTEROL 2.5MG INH SOL UD 3ML (DUONEB) NEB SCH ×3 (01:02→13:16)
[2023-01-30] MEDS: HEPARIN SOD (PORCINE) 5000UNITS/ML 1ML VIAL/SYRINGE SC SCH ×2 (05:03→14:00)
[2023-01-30 06:00] LABS: BASO % 0.1 % (0.0-1.0); HEMATOCRIT 36.1 % (42.0-52.0); HEMOGLOBIN 12.2 g/dl (13.5-17.5); LYMPH # 0.4 10^3/uL (1.5-5.0); LYMPH % 5.6 % (24.0-44.0); MEAN CORPUSCULAR HEMOGLOBIN 31.6 pg (27.0-33.0); MEAN CORPUSCULAR HGB CONC 33.8 g/dl (32.0-36.5); MEAN CORPUSCULAR VOLUME 93.5 fl (80.0-96.0); MONO # 0.3 10^3/uL (0.0-0.8); MONO % 3.6 % (2.0-8.0); NEUTROPHILS # 7.1 10^3/uL (1.5-8.5); NEUTROPHILS % 90.1 % (36.0-66.0); PLATELET COUNT, AUTOMATED 173 10^3/uL (150-450); RED BLOOD COUNT 3.86 10^6/uL (4.30-6.10); WHITE BLOOD COUNT 7.9 10^3/uL (4.0-10.0)
[2023-01-30 06:19] LABS: BLOOD UREA NITROGEN 29 MG/DL (9-23); CALCIUM LEVEL 8.2 MG/DL (8.3-10.6); CARBON DIOXIDE LEVEL 27 MMOL/L (20-31); CHLORIDE LEVEL 103 MMOL/L (98-107); CREATININE FOR GFR 0.83 MG/DL (0.70-1.30); GLOMERULAR FILTRATION RATE > 60.0 (>42); GLUCOSE, FASTING 117 MG/DL (74-106); MAGNESIUM LEVEL 2.4 MG/DL (1.8-2.4); POTASSIUM SERUM 3.6 MMOL/L (3.5-5.1); SODIUM LEVEL 137 MMOL/L (136-145)
[2023-01-30] MEDS: INSULIN LISPRO (NovoLOG) PER UNIT SC SCH ×2 (07:30→12:00)
[2023-01-30] MEDS: TIOTROPIUM INHALER/CAPSULE (SPIRIVA) INH SCH (07:39)
[2023-01-30] MEDS: ADVAIR HFA 230/21MCG INHALER INH SCH (07:39)
[2023-01-30] MEDS: ASPIRIN 81MG CHEW TABLET PO SCH (09:00)
[2023-01-30] MEDS ORDERED: MIRALAX *UNIT DOSE* 17GM PACKET PO SCH (09:00)
[2023-01-30] MEDS ORDERED: MOM 30ML SUSPENSION UDC PO ONE (09:00)
[2023-01-30] MEDS: NICOTINE 14 MG/24 HR TRANSDERMAL TD SCH (09:00)
[2023-01-30] MEDS: guaiFENesin ER 600 MG TAB PO SCH (09:00)
[2023-01-30] MEDS ORDERED: SENOKOT S TAB PO SCH (09:00)
[2023-01-30] MEDS ORDERED: PRED10TA2 PO (09:43)
[2023-01-30] MEDS: GABAPENTIN 300 MG CAP PO PRN (09:44)
[2023-01-30] MEDS: LEVEMIR (INSULIN DETEMIR) 1 UNITS/0.01ML SC SCH (09:44)
[2023-01-30] MEDS: NORCO, ANEXSIA 5/325MG TABLET (HYDROcodone/ACETAMINOPHEN) PO PRN (09:45)
[2023-01-30] MEDS ORDERED: POTASSIUM CHLORIDE 10% LIQ 20MEQ/15ML UDC PO ONE (09:45)
[2023-01-30] MEDS: CARVedilol 6.25 MG TAB PO SCH (09:45)
[2023-01-30] MEDS: DOXYCYCLINE HYCLATE 100MG TABLET PO SCH (09:45)
[2023-01-30] MEDS: ATORVASTATIN 20 MG TAB PO SCH (09:45)
[2023-01-30] MEDS: FUROSEMIDE 80 MG TAB PO SCH (09:46)
[2023-01-30] MEDS: PANTOPRAZOLE 40MG TAB (PROTONIX) PO SCH (09:46)
[2023-01-30] MEDS ORDERED: DOXY100T PO (10:16)
[2023-01-30] MEDS ORDERED: CEFD300C41 PO (10:16)
[2023-01-30] MEDS ORDERED: AZIT-12 PO (10:22)
[2023-01-30] MEDS: cefTRIAXone SOD 1 GM in D5W MINI-BAG PLUS 50 ML IV SCH (11:00)
[2023-02-01 14:09] LABS: BODY FLUID CULTURE Not indicated. (.); LEGIONELLA ANTIGEN URINE Negative (Negative); ORGANISM ID Not indicated. (.); SPECIMEN SOURCE Urine (.); URINE STREP PNEUMONIAE ANTIGEN Negative (Negative)
== END 2023-01-30 15:37 | disposition home or self-care (01) | DRG 189 ==
LOC: EDBD 20:22 → EDSEX 20:22 → M ED 20:22 → M ED INP 23:56 → ENRESERV 01-26 01:21 → M MSPAV 01-26 01:48 → M PCU 01-27 09:18
PROVIDERS: ADMIT Internal Medicine; ATTEND Internal Medicine
PROC: B246ZZZ Ultrasonography of Right and Left Heart (ICD-10-PCS; principal; 2023-01-28)
DX: J96.01 Acute respiratory failure with hypoxia (principal); J44.1 Chronic obstructive pulmonary disease with (acute) exacerbation; I50.22 Chronic systolic (congestive) heart failure; E87.1 Hypo-osmolality and hyponatremia; E11.51 Type 2 diabetes mellitus with diabetic peripheral angiopathy without gangrene; R91.8 Other nonspecific abnormal finding of lung field; E11.42 Type 2 diabetes mellitus with diabetic polyneuropathy; E11.65 Type 2 diabetes mellitus with hyperglycemia; K59.00 Constipation, unspecified; D64.9 Anemia, unspecified; I73.9 Peripheral vascular disease, unspecified; F17.210 Nicotine dependence, cigarettes, uncomplicated; I11.0 Hypertensive heart disease with heart failure; C61 Malignant neoplasm of prostate; Z89.611 Acquired absence of right leg above knee; Z89.512 Acquired absence of left leg below knee; Z79.4 Long term (current) use of insulin; Z79.899 Other long term (current) drug therapy; Z20.822 Contact with and (suspected) exposure to COVID-19; Z87.891 Personal history of nicotine dependence; Z66 Do not resuscitate

== ENCOUNTER 2023-03-09 17:03 | Emergency (ER) | payer OTHER ==
[~2023-03-09] VITALS: Ht 175.3 cm; Wt 65.0 kg
[~2023-03-09 17:03] MED LIST changes: +CEFD300C41 PO; +DOXY100T PO; +FLUT1BLS3 INH; -GABA-283 PO; +GABA-284 PO
[2023-03-09 17:19] VITALS: TEMP 97.9
[2023-03-09] MEDS ORDERED: methylPREDNISolone 125MG 2ML VIAL IV ONE (17:20)
[2023-03-09 17:46] LABS: VENOUS BASE EXCESS -0.6 (-2.0-2.0); VENOUS HCO3 26.6 MMOL/L (23.0-27.0); VENOUS O2 SATURATION 61.7 % (60.0-80.0); VENOUS PARTIAL PRESSURE CO2 54.8 mmHg (38.0-50.0); VENOUS PARTIAL PRESSURE O2 32.4 mmHg (30.0-50.0); VENOUS PH 7.304 UNITS (7.330-7.430); VENOUS STANDARD HCO3 23.2 MMOL/L; VENOUS TOTAL CO2 28.3 MMOL/L (24.0-28.0)
[2023-03-09 17:51] LABS: BASO # 0.1 10^3/uL (0.0-0.2); BASO % 0.9 % (0.0-1.0); EOS % 0.2 % (0.0-3.0); HEMATOCRIT 36.6 % (42.0-52.0); HEMOGLOBIN 12.1 g/dl (13.5-17.5); LYMPH # 0.7 10^3/uL (1.5-5.0); LYMPH % 12.8 % (24.0-44.0); MEAN CORPUSCULAR HEMOGLOBIN 31.5 pg (27.0-33.0); MEAN CORPUSCULAR HGB CONC 33.1 g/dl (32.0-36.5); MEAN CORPUSCULAR VOLUME 95.3 fl (80.0-96.0); MONO # 0.3 10^3/uL (0.0-0.8); MONO % 5.5 % (2.0-8.0); NEUTROPHILS # 4.5 10^3/uL (1.5-8.5); NEUTROPHILS % 80.2 % (36.0-66.0); PLATELET COUNT, AUTOMATED 161 10^3/uL (150-450); RED BLOOD COUNT 3.84 10^6/uL (4.30-6.10); WHITE BLOOD COUNT 5.6 10^3/uL (4.0-10.0)
[2023-03-09 18:14] LABS: ALBUMIN 3.8 G/DL (3.2-5.2); ALKALINE PHOSPHATASE 76 U/L (46-116); ALT/SGPT 10 U/L (7.0-40); AST/SGOT 12 U/L (<34); BILIRUBIN,DIRECT 0.2 MG/DL (<0.4); BILIRUBIN,TOTAL 0.4 MG/DL (0.3-1.2); BLOOD UREA NITROGEN 13 MG/DL (9-23); CALCIUM LEVEL 8.8 MG/DL (8.3-10.6); CARBON DIOXIDE LEVEL 30 MMOL/L (20-31); CHLORIDE LEVEL 101 MMOL/L (98-107); CREATININE FOR GFR 0.85 MG/DL (0.70-1.30); GLOMERULAR FILTRATION RATE > 60.0 (>42); GLUCOSE, FASTING 228 MG/DL (74-106); POTASSIUM SERUM 4.7 MMOL/L (3.5-5.1); SODIUM LEVEL 138 MMOL/L (136-145); TOTAL PROTEIN 6.6 G/DL (5.7-8.2)
[2023-03-09] MEDS: IPRATROPIUM 0.5MG/ALBUTEROL 2.5MG INH SOL UD 3ML (DUONEB) NEB PRN (18:23)
[2023-03-09] MEDS ORDERED: PRED20TA PO (18:44)
[2023-03-09 19:31] VITALS: BP 116/55
[2023-03-09 20:18] VITALS: O2SAT 97
[2023-03-09 20:34] VITALS: O2SAT 93
== END 2023-03-09 21:45 | disposition home or self-care (01) ==
LOC: M ED 17:03 → EDBD 17:03 → M ED 21:45
DX: J44.1 Chronic obstructive pulmonary disease with (acute) exacerbation (principal); I11.9 Hypertensive heart disease without heart failure; I50.20 Unspecified systolic (congestive) heart failure; E11.51 Type 2 diabetes mellitus with diabetic peripheral angiopathy without gangrene; Z85.46 Personal history of malignant neoplasm of prostate; Z89.611 Acquired absence of right leg above knee; Z89.512 Acquired absence of left leg below knee; Z79.52 Long term (current) use of systemic steroids; Z79.51 Long term (current) use of inhaled steroids; Z79.899 Other long term (current) drug therapy; Z79.4 Long term (current) use of insulin
CPT/HCPCS: 71045; 80048; 80076; 82803; 83605; 85025; 87040; 87486; 87581; 87633; 87798; 93005; 93041; 94640; 94760; 96374; 99285; J2930

== ENCOUNTER 2023-07-26 15:53 | Emergency (ER) | payer OTHER ==
[~2023-07-26] VITALS: Ht 152.4 cm; Wt 63.6 kg
[~2023-07-26 15:53] MED LIST changes: +CEFD1CAP9 PO; -CEFD300C41 PO; +MECL-209 PO; -MECL1TAB31 PO; +PRED20TA PO
[2023-07-26 15:54] VITALS: TEMP 98.4
[2023-07-26 18:07] LABS: BASO % 0.5 % (0.0-1.0); EOS # 0.1 10^3/uL (0.0-0.5); EOS % 1.3 % (0.0-3.0); HEMATOCRIT 42.1 % (42.0-52.0); HEMOGLOBIN 14.1 g/dl (13.5-17.5); LYMPH # 1.4 10^3/uL (1.5-5.0); LYMPH % 15.9 % (24.0-44.0); MEAN CORPUSCULAR HEMOGLOBIN 30.7 pg (27.0-33.0); MEAN CORPUSCULAR HGB CONC 33.5 g/dl (32.0-36.5); MEAN CORPUSCULAR VOLUME 91.7 fl (80.0-96.0); MONO % 11.2 % (2.0-8.0); NEUTROPHILS # 6.2 10^3/uL (1.5-8.5); NEUTROPHILS % 70.2 % (36.0-66.0); PLATELET COUNT, AUTOMATED 231 10^3/uL (150-450); RED BLOOD COUNT 4.59 10^6/uL (4.30-6.10); WHITE BLOOD COUNT 8.8 10^3/uL (4.0-10.0)
[2023-07-26 18:23] LABS: LIPASE 28 U/L (12-53)
[2023-07-26] MEDS ORDERED: ONDANSETRON 4MG 2ML VIAL IV ONE (18:25)
[2023-07-26] MEDS ORDERED: NS 1,000 ML IV ONE (18:25)
[2023-07-26] MEDS ORDERED: PANTOPRAZOLE 40MG VIAL IV ONE (18:25)
[2023-07-26 18:27] LABS: RSV AMPLIFICATION NEGATIVE (NEGATIVE)
[2023-07-26 18:45] LABS: ALBUMIN 3.9 G/DL (3.2-5.2); ALKALINE PHOSPHATASE 69 U/L (46-116); ALT/SGPT 12 U/L (7.0-40); AST/SGOT 24 U/L (<34); BILIRUBIN,DIRECT 0.2 MG/DL (<0.4); BILIRUBIN,TOTAL 0.5 MG/DL (0.3-1.2); BLOOD UREA NITROGEN 7 MG/DL (9-23); CALCIUM LEVEL 8.9 MG/DL (8.3-10.6); CARBON DIOXIDE LEVEL 30 MMOL/L (20-31); CHLORIDE LEVEL 99 MMOL/L (98-107); CREATININE FOR GFR 0.77 MG/DL (0.70-1.30); GLOMERULAR FILTRATION RATE > 60.0 (>42); GLUCOSE, FASTING 124 MG/DL (74-106); POTASSIUM SERUM 4.7 MMOL/L (3.5-5.1); SODIUM LEVEL 137 MMOL/L (136-145); TOTAL PROTEIN 7.2 G/DL (5.7-8.2)
[2023-07-26 20:15] VITALS: BP 153/65
[2023-07-26] MEDS ORDERED: ONDA-83 PO (20:28)
[2023-07-26] MEDS ORDERED: CIPR-249 PO (20:28)
[2023-07-26] MEDS ORDERED: FLAG375C PO (20:28)
[2023-07-26 20:30] VITALS: O2SAT 95
== END 2023-07-26 20:54 | disposition home or self-care (01) ==
LOC: M ED 15:53
DX: K51.20 Ulcerative (chronic) proctitis without complications (principal); U07.1 COVID-19; I10 Essential (primary) hypertension; E11.9 Type 2 diabetes mellitus without complications; J44.9 Chronic obstructive pulmonary disease, unspecified; Z85.46 Personal history of malignant neoplasm of prostate; F17.200 Nicotine dependence, unspecified, uncomplicated; Z79.52 Long term (current) use of systemic steroids; Z79.899 Other long term (current) drug therapy; Z79.4 Long term (current) use of insulin
CPT/HCPCS: 74176; 80048; 80076; 83690; 85025; 87631; 96374; 96375; 99284; C9113; J2405

== ENCOUNTER 2024-08-16 10:19 | Emergency (ER) | payer OTHER, MEDICARE ==
[~2024-08-16] VITALS: Ht 157.5 cm; Wt 61.4 kg
[~2024-08-16 10:19] MED LIST changes: +BICA50TA4 PO; -BICA50TA9 PO; +CIPR-249 PO; +FLAG375C PO; +GABA-1172 PO; -GABA-282 PO; +ONDA-83 PO; -ROSU40TA4 PO; +ROSU40TA81 PO
[2024-08-16 13:10] VITALS: BP 112/51; TEMP 98.4; O2SAT 98
== END 2024-08-16 15:06 | disposition home or self-care (01) ==
LOC: M ED 10:19 → EDBD 10:19 → M ED 15:06
DX: S70.01XA Contusion of right hip, initial encounter (principal); W05.0XXA Fall from non-moving wheelchair, initial encounter; J44.9 Chronic obstructive pulmonary disease, unspecified; E11.9 Type 2 diabetes mellitus without complications; I10 Essential (primary) hypertension; F17.200 Nicotine dependence, unspecified, uncomplicated; Y92.009 Unspecified place in unspecified non-institutional (private) residence as the place of occurrence of the external cause; Y93.89 Activity, other specified; Y99.9 Unspecified external cause status; Z86.79 Personal history of other diseases of the circulatory system; Z79.52 Long term (current) use of systemic steroids; Z79.2 Long term (current) use of antibiotics; Z79.899 Other long term (current) drug therapy; Z79.4 Long term (current) use of insulin